=== PATIENT | male | born 1975 | race African-American/Black ===

== ENCOUNTER 2022-01-03 15:02 | Emergency (ER) | payer OTHER | END 2022-01-03 16:39 | disposition left against medical advice (07) | LOC: ER 15:02 | DX: R68.89 Other general symptoms and signs (principal); Z53.21 Procedure and treatment not carried out due to patient leaving prior to being seen by health care provider ==

== ENCOUNTER 2022-09-20 20:46 | Emergency (ER) | payer OTHER ==
[~2022-09-20] VITALS: Ht 182.9 cm; Wt 90.9 kg
[2022-09-20 20:46] VITALS: BP 150/88; PULSE 66; RESP 18; O2SAT 96
[2022-09-22] MEDS ORDERED: NORPTMEDS CO (02:06)
== END 2022-09-21 23:52 | disposition left against medical advice (07) ==
LOC: ER 20:47
DX: R29.810 Facial weakness (principal); R20.0 Anesthesia of skin; Z53.21 Procedure and treatment not carried out due to patient leaving prior to being seen by health care provider

== ENCOUNTER 2022-09-21 04:00 | Inpatient (IN) | payer OTHER ==
[~2022-09-21] VITALS: Ht 182.9 cm; Wt 93.6 kg
[2022-09-21 05:10] LABS: Basophils # (auto) 0 10 ^3/uL (0-0.2); Basophils % (auto) 0.6 % (0.0-2.0); Eosinophils # (auto) 0.3 10 ^3/uL (0-0.8); Hematocrit 42.2 % (41.0-53.0); Hemoglobin 14.6 g/dL (13.5-17.5); Lymphocytes # (auto) 1.3 10 ^3/uL (0.4-5.4); Mean Corpuscular Hgb Conc. 34.5 g/dL (32.0-36.0); Mean Corpuscular Volume 92.8 fL (80.0-100.0); Monocytes # (auto) 0.6 10 ^3/uL (0-1.3); Monocytes % (auto) 6.9 % (0.0-12.0); Neutrophils # (auto) 6.4 10 ^3/uL (1.6-8.6); Neutrophils % (auto) 74.5 % (37.0-80.0); Nucleated Red Blood Cells % 0.2 %; Red Blood Cells 4.55 10^6/uL (4.5-5.90); Red Cell Distribution Width 12.5 % (11.8-14.3); White Blood Cell 8.5 10^3/uL (4.4-10.8)
[2022-09-21 05:28] LABS: Albumin 4.1 g/dL (3.4-5.0); Anion Gap 12 (5-15); Aspartate Aminotransferase 94 U/L (15-37); BUN/Creatinine Ratio 23.4 (10.0-20.0); Blood Urea Nitrogen 26 mg/dL (7-18); Calcium 8.6 mg/dL (8.5-10.1); Carbon Dioxide 26 mmol/L (21-32); Chloride 94 mmol/L (98-107); GFR African American 91 mL/min; GFR Non-African American 75 mL/min; Glucose 117 mg/dL (74-106); Lipase 334 U/L (73-393); Sodium 132 mmol/L (136-145)
[2022-09-21 05:34] LABS: Alanine Aminotransferase 84 U/L (16-61); Alkaline Phosphatase 88 U/L (45-117); Bilirubin, Total 1.3 mg/dL (0.2-1.0)
[2022-09-21] MEDS ORDERED: PANTOPRAZOLE 40 MG/10 ML VIAL INJ IV ONE (07:00)
[2022-09-21] MEDS ORDERED: POTASSIUM CHL 20MEQ/100ML 100 ML IV ONE (07:00)
[2022-09-21] MEDS ORDERED: SODIUM CHLORIDE 0.9% 1,000 ML IVB ONE (07:00)
[2022-09-21] MEDS ORDERED: PROCHLORPERAZINE EDISYLATE 5 MG/ML 2ML VIAL IV ONE (07:45)
[2022-09-21 10:40] VITALS: PULSE 69; RESP 13; O2SAT 95
[2022-09-21] MEDS ORDERED: ONDANSETRON HCL 4 MG/2 ML VIAL IV ONE (11:45)
[2022-09-21] MEDS ORDERED: NITROGLYCERIN 0.4 MG SL TAB SL PRN (12:00)
[2022-09-21] MEDS ORDERED: MORPHINE SULFATE INJ 2 MG/ml SYRG IV PRN (12:00)
[2022-09-21 12:28] LABS: INR 1.04 (0.9-1.15); Partial Thromboplastin Time 27.1 SEC (24.5-34.5); Prothrombin Time 10.9 sec (9.3-11.8)
[2022-09-21] MEDS: FOLIC ACID 1 MG, MULTIPLE VITAMIN 10 ML, MAGNESIUM SULF SDV 50% 8 MEQ, THIAMINE INJ 100... INJ SCH ×5 (12:39)
[2022-09-21] MEDS ORDERED: LORazepam 2MG/ML-1ML VIAL IV PRN (14:15)
[2022-09-21] MEDS ORDERED: ONDANSETRON HCL 4 MG/2 ML VIAL IV PRN (14:15)
[2022-09-21 15:03] LABS: Urine Bacteria NONE SEEN /hpf (None Seen); Urine Blood Negative /uL (Negative); Urine Clarity Clear (Clear); Urine Color Colorless (Yellow); Urine Protein, UAD Negative (Negative); Urine Specific Gravity 1.011 (1.001-1.035); Urine Urobilinogen Normal (Negative); Urine WBC 1 /hpf (0 - 3)
[2022-09-21 15:09] LABS: Amphetamine Screen, Urine POSITIVE (NEGATIVE); Barbiturate Scree,Urine NEGATIVE (NEGATIVE); Benzodiazephine Screen, Urine NEGATIVE (NEGATIVE); Cannabinoid Screen, Urine POSITIVE (NEGATIVE); Cocaine Screen, Urine NEGATIVE (NEGATIVE)
[2022-09-21 15:16] LABS: Opiate Scree,Urine NEGATIVE (NEGATIVE); Phencyclidine Screen, Urine NEGATIVE (NEGATIVE)
[2022-09-21] MEDS: SODIUM CHLORIDE 0.9% 1,000 ML IV SCH (16:34)
[2022-09-21] MEDS ORDERED: hydrALAZINE HCL 20 MG/ML VL IV PRN (17:15)
[2022-09-21 20:05] VITALS: PULSE 73; RESP 16; O2SAT 96
[2022-09-22] VITALS (8 sets, daily range): BP systolic 126–151; BP diastolic 67–80; PULSE 57–73; RESP 14–18; TEMP 97.6–98.7; O2SAT 94–99
[2022-09-22] MEDS ORDERED: NORPTMEDS CO (02:06)
[2022-09-22] MEDS: SODIUM CHLORIDE 0.9% 1,000 ML IV SCH ×2 (03:35→17:33)
[2022-09-22] MEDS: SUCRALFATE 1 GM/10 ML ORAL SUSP PO SCH ×4 (06:07→21:42)
[2022-09-22 07:02] LABS: Albumin 3.1 g/dL (3.4-5.0); Bilirubin, Direct 0.2 mg/dL (0-0.2); Bilirubin, Total 0.9 mg/dL (0.2-1.0); Total Protein 6.7 g/dL (6.4-8.2)
[2022-09-22 08:17] LABS: Basophils # (auto) 0.1 10 ^3/uL (0-0.2); Eosinophils # (auto) 0.2 10 ^3/uL (0-0.8); Eosinophils % (auto) 2.8 % (0.0-7.0); Hematocrit 39.5 % (41.0-53.0); Hemoglobin 13.1 g/dL (13.5-17.5); Mean Corpuscular Hemoglobin 30.9 pg (28.0-32.0); Mean Corpuscular Hgb Conc. 33.3 g/dL (32.0-36.0); Monocytes # (auto) 0.7 10 ^3/uL (0-1.3); Monocytes % (auto) 8.8 % (0.0-12.0); Neutrophils # (auto) 5.1 10 ^3/uL (1.6-8.6); Neutrophils % (auto) 62.4 % (37.0-80.0); Nucleated Red Blood Cells % 0.1 %; Red Blood Cells 4.25 10^6/uL (4.5-5.90); White Blood Cell 8.1 10^3/uL (4.4-10.8)
[2022-09-22 08:39] LABS: Albumin 3.1 g/dL (3.4-5.0); Calcium 7.9 mg/dL (8.5-10.1); Phosphorus 1.4 mg/dL (2.5-4.90); Potassium 3.4 mmol/L (3.5-5.1)
[2022-09-22] MEDS ORDERED: POTASSIUM PHOSPHATE 26.4 MEQ in SODIUM CHL 0.9% 100 ML IV ONE (11:00)
[2022-09-22] MEDS: PANTOPRAZOLE 40 MG/10 ML VIAL INJ IV SCH (11:56)
[2022-09-22] MEDS: FOLIC ACID 1 MG, MULTIPLE VITAMIN 10 ML, MAGNESIUM SULF SDV 50% 8 MEQ, THIAMINE INJ 100... INJ SCH ×5 (12:55)
[2022-09-23] VITALS (8 sets, daily range): BP systolic 140–153; BP diastolic 76–88; PULSE 60–85; RESP 15–19; TEMP 97.9–99.3; O2SAT 94–100
[2022-09-23] MEDS: SUCRALFATE 1 GM/10 ML ORAL SUSP PO SCH ×4 (05:41→21:16)
[2022-09-23] MEDS: SODIUM CHLORIDE 0.9% 1,000 ML IV SCH ×2 (08:49→19:35)
[2022-09-23] MEDS: LACTULOSE 20Gm/30ML SOLN PO SCH (09:40)
[2022-09-23] MEDS: PANTOPRAZOLE 40 MG/10 ML VIAL INJ IV SCH (09:40)
[2022-09-23 09:41] LABS: Basophils # (auto) 0.1 10 ^3/uL (0-0.2); Eosinophils # (auto) 0.2 10 ^3/uL (0-0.8); Eosinophils % (auto) 3.1 % (0.0-7.0); Hematocrit 36.5 % (41.0-53.0); Hemoglobin 12.2 g/dL (13.5-17.5); Lymphocytes # (auto) 2.1 10 ^3/uL (0.4-5.4); Mean Corpuscular Hemoglobin 31.2 pg (28.0-32.0); Mean Corpuscular Hgb Conc. 33.4 g/dL (32.0-36.0); Mean Corpuscular Volume 93.4 fL (80.0-100.0); Monocytes # (auto) 0.5 10 ^3/uL (0-1.3); Monocytes % (auto) 7.7 % (0.0-12.0); Neutrophils # (auto) 3.9 10 ^3/uL (1.6-8.6); Neutrophils % (auto) 57.2 % (37.0-80.0); Nucleated Red Blood Cells % 0.2 %; Red Blood Cells 3.91 10^6/uL (4.5-5.90); Red Cell Distribution Width 12.6 % (11.8-14.3); White Blood Cell 6.9 10^3/uL (4.4-10.8)
[2022-09-23 09:49] LABS: Hepatitis A Total Antibody Negative (Negative)
[2022-09-23 10:10] LABS: BUN/Creatinine Ratio 9.9 (10.0-20.0); Potassium 3.6 mmol/L (3.5-5.1)
[2022-09-23] MEDS ORDERED: SUCR1SUS26 PO (10:38)
[2022-09-23] MEDS ORDERED: MULT-351 PO (10:38)
[2022-09-23] MEDS ORDERED: PANT40TA2 PO (10:38)
[2022-09-23 11:24] LABS: Hepatitis B Surface Antibody Negative (Negative)
[2022-09-23 12:46] LABS: Hepatitis B Surface Antigen Negative (Negative)
[2022-09-23 12:47] LABS: Hepatitis B Core Total AB Negative (Negative); Hepatitis C Antibody Negative (Negative)
[2022-09-23] MEDS ORDERED: NEUTRA-PHOS TABLET PO ONE (18:45)
[2022-09-23] MEDS ORDERED: LORazepam 2MG/ML-1ML VIAL IV PRN (21:45)
[2022-09-24 05:00] VITALS: BP 139/80; PULSE 56; RESP 18; TEMP 98.3; O2SAT 97
[2022-09-24 05:59] LABS: Basophils # (auto) 0.1 10 ^3/uL (0-0.2); Basophils % (auto) 1.2 % (0.0-2.0); Eosinophils # (auto) 0.3 10 ^3/uL (0-0.8); Eosinophils % (auto) 3.9 % (0.0-7.0); Hematocrit 34.5 % (41.0-53.0); Hemoglobin 11.7 g/dL (13.5-17.5); Lymphocytes # (auto) 2.3 10 ^3/uL (0.4-5.4); Lymphocytes % (auto) 33.5 % (10.0-50.0); Mean Corpuscular Hemoglobin 31.7 pg (28.0-32.0); Mean Corpuscular Hgb Conc. 33.9 g/dL (32.0-36.0); Mean Corpuscular Volume 93.4 fL (80.0-100.0); Monocytes # (auto) 0.6 10 ^3/uL (0-1.3); Monocytes % (auto) 9.1 % (0.0-12.0); Neutrophils # (auto) 3.6 10 ^3/uL (1.6-8.6); Neutrophils % (auto) 52.3 % (37.0-80.0); Nucleated Red Blood Cells % 0.1 %; Red Blood Cells 3.69 10^6/uL (4.5-5.90); Red Cell Distribution Width 12.6 % (11.8-14.3)
[2022-09-24 06:14] LABS: BUN/Creatinine Ratio 14.6 (10.0-20.0); Calcium 7.9 mg/dL (8.5-10.1); Potassium 3.1 mmol/L (3.5-5.1)
[2022-09-24] MEDS: SUCRALFATE 1 GM/10 ML ORAL SUSP PO SCH ×2 (06:55→09:20)
[2022-09-24] MEDS ORDERED: POTASSIUM PHOSPHATE 26.4 MEQ in SODIUM CHL 0.9% 100 ML IV ONE (07:30)
[2022-09-24 08:00] VITALS: PULSE 80; RESP 19; O2SAT 99
[2022-09-24] MEDS: SODIUM CHLORIDE 0.9% 1,000 ML IV SCH (08:55)
[2022-09-24] MEDS: PANTOPRAZOLE 40 MG/10 ML VIAL INJ IV SCH (09:18)
[2022-09-24] MEDS: LACTULOSE 20Gm/30ML SOLN PO SCH (09:19)
== END 2022-09-24 09:20 | disposition home or self-care (01) | DRG 241 ==
LOC: ER 04:00 → TELE 11:52 → TELE-EAST 23:54 → EAST 09-23 15:25
PROVIDERS: ADMIT Internal Medicine; ATTEND Student in an Organized Health Care Education/Training Program
DX: K29.80 Duodenitis without bleeding (principal); G92.8 Other toxic encephalopathy; I21.A1 Myocardial infarction type 2; E83.39 Other disorders of phosphorus metabolism; E87.8 Other disorders of electrolyte and fluid balance, not elsewhere classified; F19.10 Other psychoactive substance abuse, uncomplicated; K76.9 Liver disease, unspecified; E87.6 Hypokalemia; K52.9 Noninfective gastroenteritis and colitis, unspecified; K29.00 Acute gastritis without bleeding; F17.210 Nicotine dependence, cigarettes, uncomplicated; F20.9 Schizophrenia, unspecified; F31.9 Bipolar disorder, unspecified; Z59.00 Homelessness unspecified; Z82.0 Family history of epilepsy and other diseases of the nervous system
CPT/HCPCS: 36415; 72100; 74176; 76705; 80048; 80053; 80069; 80076; 80307; 81001; 82010; 82140; 82728; 83690; 84100; 84484; 85025; 85610; 85730; 86677; 86704; 86706; 86708; 86803; 87340; 93005; 96361; 96365; 96366; 96375; 97163; C9113; G0378; J2405; J3480

== ENCOUNTER 2023-04-10 03:04 | Inpatient (IN) | payer MEDICAID, OTHER ==
[~2023-04-10] VITALS: Ht 182.9 cm; Wt 82.9 kg
[~2023-04-10 03:04] MED LIST: MULT-351 PO; NORPTMEDS CO; PANT40TA2 PO; SUCR1SUS26 PO
[2023-04-10 03:25] VITALS: BP 164/94; RESP 16; O2SAT 98
[2023-04-10 06:54] LABS: Basophils # (auto) 0.1 10 ^3/uL (0-0.2); Basophils % (auto) 1.3 % (0.0-2.0); Eosinophils # (auto) 0.3 10 ^3/uL (0-0.8); Hematocrit 43.4 % (41.0-53.0); Hemoglobin 14.8 g/dL (13.5-17.5); Lymphocytes # (auto) 2.4 10 ^3/uL (0.4-5.4); Lymphocytes % (auto) 36.1 % (10.0-50.0); Mean Corpuscular Hgb Conc. 34.2 g/dL (32.0-36.0); Mean Corpuscular Volume 93.8 fL (80.0-100.0); Monocytes # (auto) 0.5 10 ^3/uL (0-1.3); Monocytes % (auto) 8.1 % (0.0-12.0); Neutrophils # (auto) 3.4 10 ^3/uL (1.6-8.6); Neutrophils % (auto) 50.5 % (37.0-80.0); Nucleated Red Blood Cells % 0.1 %; Red Blood Cells 4.62 10^6/uL (4.5-5.90); Red Cell Distribution Width 13.2 % (11.8-14.3); White Blood Cell 6.7 10^3/uL (4.4-10.8)
[2023-04-10 07:08] LABS: Chloride 103 mmol/L (98-107); Potassium 4.5 mmol/L (3.5-5.1); Sodium 138 mmol/L (136-145)
[2023-04-10 07:09] LABS: Anion Gap 7 (5-15); Calcium 9.8 mg/dL (8.5-10.1); Carbon Dioxide 28 mmol/L (20-30)
[2023-04-10 07:14] LABS: BUN/Creatinine Ratio 16.3 (10.0-20.0); Blood Urea Nitrogen 15 mg/dL (9-23); Glucose 101 mg/dL (74-106)
[2023-04-10 07:15] LABS: Blood Alcohol < 3.0 mg/dL (<10)
[2023-04-10 09:05] VITALS: PULSE 65
[2023-04-10 09:17] LABS: INR 0.98 (0.9-1.15); Prothrombin Time 10.3 sec (9.3-11.8)
[2023-04-10 09:30] LABS: Albumin 4.5 g/dL (3.2-4.8); Bilirubin, Direct 0.3 mg/dL (<0.3); Total Protein 7.7 g/dL (5.7-8.2)
[2023-04-10 09:53] LABS: Amphetamine Screen, Urine Pos (NEGATIVE); Barbiturate Scree,Urine Neg (NEGATIVE); Benzodiazephine Screen, Urine Neg (NEGATIVE); Cocaine Screen, Urine Neg (NEGATIVE)
[2023-04-10 09:54] LABS: Cannabinoid Screen, Urine Pos (NEGATIVE); Opiate Scree,Urine Neg (NEGATIVE); Phencyclidine Screen, Urine Neg (NEGATIVE)
[2023-04-10 09:57] LABS: Urine Bacteria NONE SEEN /hpf (None Seen); Urine Blood Negative /uL (Negative); Urine Clarity Clear (Clear); Urine Color Yellow (Yellow); Urine Protein, UAD Negative (Negative); Urine Specific Gravity 1.026 (1.001-1.035); Urine Urobilinogen Normal (Negative); Urine WBC 1 /hpf (0 - 3); Urine pH 5.5 (5.0-8.0)
[2023-04-10] MEDS ORDERED: ACETAMINOPHEN 325 MG TAB PO PRN (10:15)
[2023-04-10] MEDS ORDERED: NITROGLYCERIN 0.4 MG SL TAB SL PRN (10:15)
[2023-04-10] MEDS ORDERED: ONDANSETRON HCL 4 MG/2 ML VIAL IV PRN (10:15)
[2023-04-10] MEDS ORDERED: HYDROmorphone HCL 2 MG/ML VL/or syr IV PRN (10:15)
[2023-04-10] MEDS ORDERED: MORPHINE SULFATE INJ 2 MG/ml SYRG IV PRN (10:15)
[2023-04-10] MEDS ORDERED: ENOXAPARIN SOD 40 MG/0.4 ML SYRINGE SC SCH (10:15)
[2023-04-10] MEDS ORDERED: DOCUSATE SOD 100 MG CAP PO PRN (10:15)
[2023-04-10] MEDS ORDERED: HYDROcodone-ACET 5/325MG TAB PO PRN (10:15)
[2023-04-10] MEDS ORDERED: LACTATED RINGER'S 1,000 ML IV SCH (11:30)
[2023-04-10] MEDS ORDERED: SODIUM CHLOR 0.9% PF (SALINE LOCK) 10ML VIAL/SYR IV SCH (14:00)
== END 2023-04-10 13:24 | disposition left against medical advice (07) | DRG 198 ==
LOC: ER 03:04 → TELE 10:09
PROVIDERS: ADMIT Internal Medicine; ATTEND Internal Medicine Geriatric Medicine
DX: I24.9 Acute ischemic heart disease, unspecified (principal); F17.210 Nicotine dependence, cigarettes, uncomplicated; I10 Essential (primary) hypertension; K21.9 Gastro-esophageal reflux disease without esophagitis; R79.89 Other specified abnormal findings of blood chemistry; F19.10 Other psychoactive substance abuse, uncomplicated; Z59.00 Homelessness unspecified; Z82.0 Family history of epilepsy and other diseases of the nervous system
CPT/HCPCS: 36415; 71045; 80048; 80076; 80307; 80320; 81001; 83690; 83735; 84484; 85025; 85610; 93005; G0378

== ENCOUNTER 2023-06-08 05:57 | Emergency (ER) | payer OTHER ==
[~2023-06-08] VITALS: Ht 180.3 cm; Wt 86.4 kg
[2023-06-08 07:46] VITALS: BP 158/102; PULSE 75; RESP 19; TEMP 98.2; O2SAT 98
[2023-06-08] MEDS ORDERED: ACET-1881 PO (08:16)
[2023-06-08] MEDS ORDERED: DICL1GEL59 EX (08:16)
[2023-06-08] MEDS ORDERED: MELO7.5T7 PO (08:16)
== END 2023-06-08 08:32 | disposition home or self-care (01) ==
LOC: ER 05:57
DX: R51.9 Headache, unspecified (principal); M79.672 Pain in left foot; M79.671 Pain in right foot; F17.210 Nicotine dependence, cigarettes, uncomplicated; F12.10 Cannabis abuse, uncomplicated; F15.10 Other stimulant abuse, uncomplicated; Z59.00 Homelessness unspecified

== ENCOUNTER 2023-08-24 13:34 | Emergency (ER) | payer OTHER ==
[~2023-08-24] VITALS: Ht 170.2 cm; Wt 77.0 kg
[~2023-08-24 13:34] MED LIST changes: +ACET-1881 PO; +DICL1GEL59 EX; +MELO7.5T7 PO
[2023-08-24 13:45] VITALS: BP 143/82; PULSE 83; RESP 18; O2SAT 99
== END 2023-08-24 15:54 | disposition left against medical advice (07) ==
LOC: ER 13:34
DX: F41.9 Anxiety disorder, unspecified (principal); R51.9 Headache, unspecified; Z53.21 Procedure and treatment not carried out due to patient leaving prior to being seen by health care provider

== ENCOUNTER 2023-09-13 00:57 | Emergency (ER) | payer OTHER ==
[~2023-09-13] VITALS: Ht 180.3 cm; Wt 76.1 kg
[2023-09-13 04:01] VITALS: BP 155/95; PULSE 68; RESP 16; TEMP 97.5; O2SAT 98
[2023-09-13] MEDS: LORazepam 0.5 MG TAB PO ONE (05:16)
[2023-09-13] MEDS: IBUPROFEN 600 MG TAB PO ONE (05:16)
== END 2023-09-13 05:24 | disposition home or self-care (01) ==
LOC: ER 00:57
DX: F41.9 Anxiety disorder, unspecified (principal); F17.210 Nicotine dependence, cigarettes, uncomplicated; F12.90 Cannabis use, unspecified, uncomplicated; F15.90 Other stimulant use, unspecified, uncomplicated; Z79.899 Other long term (current) drug therapy; Z79.1 Long term (current) use of non-steroidal anti-inflammatories (NSAID); Z59.00 Homelessness unspecified

== ENCOUNTER 2023-12-22 21:39 | Emergency (ER) | payer OTHER ==
[~2023-12-22] VITALS: Ht 182.9 cm; Wt 77.3 kg
[2023-12-22 22:20] VITALS: BP 163/97; PULSE 94; RESP 20; TEMP 98.5; O2SAT 98
[2023-12-23] MEDS: ACETAMINOPHEN 500 MG TAB PO ONE (00:57)
[2023-12-23] MEDS: LORazepam 0.5 MG TAB PO ONE (00:58)
[2023-12-23] MEDS ORDERED: PROP1TAB51 PO (01:25)
--- NOTE | 2023-12-23 01:27 | ED.PDOC ---
Psychiatric HPI Comments This is a 48 year old homeless male presents to the ED chief complaint of anxiety. Patient reports currently controlled with Xanax has been out of his medications for several days. Patient is requesting refill. He denies HI SI LESLIE SA or panic attacks at this time also denies any withdrawal symptoms. Chief Complaint: Anxiety Time Seen by MD: 22:04 Primary Care Provider: unknown Reviewed Notes: Nurses Notes, Medications, Allergies Information Source: Patient Mode of Arrival: Ambulatory Past Medical History PAST MEDICAL HISTORY: Denies Surgical History: Denies all surgeries Family History Family History: Unknown Social History Smoker: Cigarettes Alcohol: Occasionally Drugs: Marijuana, Methamphetamine Lives In: Homeless Constitutional: denies: chills, diaphoresis, fatigue, fever, malaise, sweats, weakness, others EENTM: denies: blurred vision, double vision, ear bleeding, ear discharge, ear drainage, ear pain, ear ringing, eye pain, eye redness, hearing loss, mouth pain, mouth swelling, nasal discharge, nose bleeding, nose congestion, nose pain, photophobia, tearing, throat pain, throat swelling, voice changes, others Respiratory: denies: cough, hemoptysis, orthopnea, SOB at rest, shortness of breath, SOB with excertion, stridor, wheezing, others Cardiovascular: denies: chest pain, dizzy spells, diaphoresis, Dyspnea on exertion, edema, irregular heart beat, left arm pain, lightheadedness, palpitations, PND, syncope, others Gastrointestinal: denies: abdomen distended, abdominal pain, blood streaked bowels, constipated, diarrhea, dysphagia, difficulty swallowing, hematemesis, melena, nausea, poor appetite, poor fluid intake, rectal bleeding, rectal pain, vomiting, others Genitourinary: denies: burning, dysuria, flank pain, frequency, hematuria, incontinence, penile discharge, penile sore, pain, testicle pain, testicle swelling, urgency, others Neurological: denies: dizziness, fainting, headache, left sided numbness, left sided weakness, numbness, paresthesia, pre-existing deficit, right sided n umbness, right sided weakness, seizure, speech problems, tingling, tremors, weakness, others Musculoskeletal: denies: back pain, gout, joint pain, joint swelling, muscle pain, muscle stiffness, neck pain, others Integumetry: denies: bruises, change in color, change in hair/nails, dryness, laceration, lesions, lumps, rash, wounds, others Allergic/Immunocompromised: denies: Difficulty Healing, Frequent Infections, Hives, Itching, others Hematologic/Lymphatic: denies: anemia, blood clots, easy bleeding, easy bruising, swollen glands, others Endocrine: denies: excessive hunger, excessive sweating, excessive thirst, excessive urination, flushing, intolerance to cold, intolerance to heat, unexplained weight gain, unexplained weight loss, others Psychiatric: reports: anxiety; denies: bipolar disorder, depression, hopeless, panic disorder, schizophrenia, sleepless, suicidal, others Physical Exam General Appearance: No Apparent Distress, Normal HEENT: Normal ENT Inspection, Pharynx Normal, TMs Normal Neck: Full Range of Motion, Non-Tender, Normal, Normal Inspection Respiratory: Chest Non-Tender, Lungs Clear, No Accessory Muscle Use, No Respiratory Distress, Normal Breath Sounds Cardiovascular: No Edema, No JVD, No Murmur, No Gallop, Normal Peripheral Pulses, Regular Rate/Rhythm Breast Exam: Deferred Gastrointestinal: No Organomegaly, Non Tender, No Pulsatile Mass, Normal Bowel Sounds, Soft Genitalia: Deferred Pelvic: Deferred Rectal: Deferred Extremities: No calf tenderness, Normal capillary refill, Normal inspection, Normal range of motion, Non-tender, No pedal edema Musculoskeletal : Apperance: Normal Neurologic: 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 Was a procedure done?: No Psych Differential Dx Psych. Differential Dx: Anxiety X-Ray, Labs, Meds, VS Vital Signs Date Time Temp Pulse Resp B/P (MAP) Pulse Ox O2 Delivery O2 Flow Rate FiO2 12/23/23 01:43 Room Air 12/22/23 22:20 98.5 94 20 163/97 (119) 98 12/22/23 22:20 98.5 94 20 163/97 (119) 98 98.5 Current Medications Medications (Trade) Dose Ordered Sig/Edwardo Route Start Time Stop Time Status Last Admin Lorazepam (Ativan Tablet) 0.5 mg ONCE ONCE PO 12/23/23 00:30 12/23/23 00:31 DC 12/23/23 00:58 Acetaminophen (Tylenol Tablet) 1,000 mg ONCE ONCE PO 12/23/23 00:30 12/23/23 00:31 DC 12/23/23 00:57 X-Ray, Labs, Meds, VS Comment Patient given Ativan 0.5 mg. Patient given food and fluids. Patient states he is feeling better requesting discharge at this time. We will trial of propranolol 10 mg twice daily as needed for anxiety and panic attacks. Advised him to follow up with his PCP for continued prescriptions of his Xanax. Advised to return to the ER for increasing symptoms of anxiety or any concerning symptoms. Patient agrees with discharge plan of care. Time of 1ST Reevaluation: :25 Reevaluation 1ST: Improved Patient Education/Counseling: Diagnosis, Treatment, Prognosis, Need For Follow Up Family Education/Counseling: No Family Present Departure 1 Departure Time of Disposition: 01:25 Impression: Primary Impression: Anxiety Disposition: HOME / SELF CARE / HOMELESS Condition: Stable e-Prescriptions Propranolol HCl (Propranolol Hydrochloride) 10 Mg Tab 1 TAB PO BID PRN for 5 Days, #10 TAB Take 1 tablet by mouth twice daily as needed for anxiety or panic attacks Prov: CAROLINA NAVA 12/23/23 Discharged With: Self Critical Care Note Critical Care Time?: No Stability Stability form required: CAROLINA Dinh Dec 23, 2023 01:27
== END 2023-12-23 01:41 | disposition home or self-care (01) ==
LOC: ER 21:39
DX: F41.9 Anxiety disorder, unspecified (principal); F17.210 Nicotine dependence, cigarettes, uncomplicated; F15.90 Other stimulant use, unspecified, uncomplicated; Z76.0 Encounter for issue of repeat prescription; Z59.00 Homelessness unspecified

== ENCOUNTER 2023-12-26 16:42 | Emergency (ER) | payer OTHER ==
[~2023-12-26] VITALS: Ht 182.9 cm; Wt 77.6 kg
[~2023-12-26 16:42] MED LIST changes: +PROP1TAB51 PO
[2023-12-26] MEDS: LORazepam 0.5 MG TAB PO ONE (18:23)
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
[2023-12-26] MEDS: ACETAMINOPHEN 325 MG TAB PO ONE (18:24)
[2023-12-26 18:25] VITALS: BP 160/100; PULSE 81; RESP 16; TEMP 98.4; O2SAT 100
--- NOTE | 2023-12-26 18:30 | DVH ---
EXAM: XY CHEST TWO VIEWS ROUTINE CLINICAL HISTORY: cough TECHNIQUE: Frontal and lateral views of the chest WID: COMPARISON: Chest radiograph from 04/10/2023 FINDINGS: Lines and tubes: None Chest: The heart size and pulmonary vasculature is within normal limits. No pleural effusion, pneumothorax, or consolidation. The osseous structures are grossly intact. IMPRESSION: No acute cardiopulmonary abnormality.
[2023-12-26] MEDS ORDERED: LORA-1121 PO (18:55)
== END 2023-12-26 21:01 | disposition home or self-care (01) ==
LOC: ER 16:42
DX: F41.9 Anxiety disorder, unspecified (principal); I10 Essential (primary) hypertension; F17.210 Nicotine dependence, cigarettes, uncomplicated; F15.90 Other stimulant use, unspecified, uncomplicated; Z98.890 Other specified postprocedural states; Z59.00 Homelessness unspecified; Z79.1 Long term (current) use of non-steroidal anti-inflammatories (NSAID); Z79.899 Other long term (current) drug therapy
CPT/HCPCS: 71046

== ENCOUNTER 2024-02-03 15:33 | Emergency (ER) | payer OTHER ==
[~2024-02-03 15:33] MED LIST changes: +LORA-1121 PO
[2024-02-03 16:26] VITALS: BP 159/94; PULSE 100; RESP 22; TEMP 97.3; O2SAT 98
--- NOTE | 2024-02-03 16:34 | ED.PDOC ---
SOB-HPI HPI Comments A 48 YEAR OLD MALE PRESENTS TO THE ED WITH COMPLAINT OF COUGH. PATIENT STATES HE HAS BEEN EXPERIENCING A COUGH, CONGESTION, AND BODY ACHES FOR THE PAST 2 DAYS. PATIENT ALSO NOTE HE HAS A HISTORY OF ANXIETY AND STATES IT HAS BEEN WORSE OVER THE LAST FEW DAYS. PT REQUESTS ANXIETY MEDICATION AT THIS TIME. PATIENT DENIES FEVER, SHORTNESS OF BREATH, CHEST PAIN, ABDOMINAL PAIN, NAUSEA, VOMITING, HEADACHE, OR OTHER COMPLAINTS. NO OTHER SYMPTOMS OR MODIFYING FACTORS AT THIS TIME. PATIENT IS ALERT, ORIENTED X 4, AND HAS STEADY GAIT. Chief Complaint: Flu like Time Seen by MD: 16:00 Primary Care Provider: unknown Reviewed notes: Nurses Notes, Medications, Allergies Information Source: Patient Mode of Arrival: Ambulatory Severity: Mild, Moderate Timing: Days Duration: Since onset, Days Context: Spontaneous Onset PE Risk Factors: None History of: Anxiety Prehospital treatment: None Modifying Factors: Nothing Associated Signs and Symptoms: Cough, Nasal Congestion, Sore Throat If cough with SOB: Non-Productive Past Medical History PAST MEDICAL HISTORY: Anxiety, HTN Surgical History: Denies all surgeries Family History Family History: Reviewed,noncontributory to illness Social History Smoker: Cigarettes Alcohol: Occasionally Drugs: Marijuana, Methamphetamine Lives In: Homeless Constitutional: denies: chills, diaphoresis, fatigue, fever, malaise, sweats, weakness, others EENTM: reports: nose congestion, throat pain; denies: blurred vision, double vision, ear bleeding, ear discharge, ear drainage, ear pain, ear ringing, eye pain, eye redness, hearing loss, mouth pain, mouth swelling, nasal discharge, nose bleeding, nose pain, photophobia, tearing, throat swelling, voice changes, others Respiratory: reports: cough; denies: hemoptysis, orthopnea, SOB at rest, shortness of breath, SOB with excertion, stridor, wheezing, others Cardiovascular: denies: chest pain, dizzy spells, diaphoresis, Dyspnea on exertion, edema, irregular heart beat, left arm pain, lightheadedness, palpitations, PND, syncope, others Gastrointestinal: denies: abdomen distended, abdominal pain, blood streaked bowels, constipated, diarrhea, dysphagia, difficulty swallowing, hematemesis, melena, nausea, poor appetite, poor fluid intake, rectal bleeding, rectal pain, vomiting, others Genitourinary: denies: burning, dysuria, flank pain, frequency, hematuria, incontinence, penile discharge, penile sore, pain, testicle pain, testicle swelling, urgency, others Neurological: denies: dizziness, fainting, headache, left sided numbness, left sided weakness, numbness, paresthesia, pre-existing deficit, right sided numbness, right sided weakness, seizure, speech problems, tingling, tremors, weakness, others Musculoskeletal: denies: back pain, gout, joint pain, joint swelling, muscle pa in, muscle stiffness, neck pain, others Integumetry: denies: bruises, change in color, change in hair/nails, dryness, laceration, lesions, lumps, rash, wounds, others Allergic/Immunocompromised: denies: Difficulty Healing, Frequent Infections, Hives, Itching, others Hematologic/Lymphatic: denies: anemia, blood clots, easy bleeding, easy bruising, swollen glands, others Endocrine: denies: excessive hunger, excessive sweating, excessive thirst, excessive urination, flushing, intolerance to cold, intolerance to heat, unexplained weight gain, unexplained weight loss, others Psychiatric: reports: anxiety; denies: bipolar disorder, depression, hopeless, panic disorder, schizophrenia, sleepless, suicidal, others All Other Systems: Reviewed and Negative Physical Exam General Appearance: No Apparent Distress, Normal, Other (ANXIOUS ) HEENT: Normal ENT Inspection, PERRL/EOMI, Pharynx Normal, TMs Normal Neck: Full Range of Motion, Non-Tender, Normal, Normal Inspection Respiratory: Chest Non-Tender, Expiration, No Accessory Muscle Use, No Respiratory Distress, Rhonchi Cardiovascular: No Edema, No JVD, No Murmur, No Gallop, Normal Peripheral Pulses, Regular Rate/Rhythm Breast Exam: Deferred Gastrointestinal: No Organomegaly, Non Tender, No Pulsatile Mass, Normal Bowel Sounds, Soft Genitalia: Deferred Pelvic: Deferred Rectal: Deferred Extremities: No calf tenderness, Normal capillary refill, Normal inspection, Normal range of motion, Non-tender, No pedal edema Musculoskeletal : Apperance: Normal Neurologic: Alert, digestion 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 Was a procedure done?: No Differential Dx Differential Diagnosis: Bronchitis, Pneumonia, Sinusitis, Allergic Rhinitis, Otitis Media, Pharyngitis, URI X-Ray, Labs, Meds, VS Vital Signs Date Time Temp Pulse Resp B/P (MAP) Pulse Ox O2 Delivery O2 Flow Rate FiO2 02/03/24 16:26 97.3 100 22 159/94 (115) 98 97.3 02/03/24 16:26 100 22 98 Room Air Current Medications Medications (Trade) Dose Ordered Sig/Edwardo Route Start Time Stop Time Status Last Admin Acetaminophen (Tylenol Tablet Or Capsule) 1,000 mg ONCE ONCE PO 02/03/24 17:15 02/03/24 17:16 02/03/24 17:09 Lorazepam (Ativan Tablet) 1 mg ONCE ONCE PO 02/03/24 17:15 02/03/24 17:16 02/03/24 17:08 CHEST RADIOGRAPH Indication: COUGH Technique: Single frontal view of the chest was obtained Comparison: XY CHEST XRAY 1 VIEW on DOS: 04/10/23 FINDINGS: Lines and Tubes: None Lungs: Bilateral perihilar peribronchial thickening. Findings may represent bronchitis.. Pleura: No effusion. No pneumothorax. Cardiomediastinal contours: Unremarkable Bones: No acute osseous abnormality. IMPRESSION: 1. Radiographic findings suggest possibility of bronchitis. ATED BY: AMY AUGUSTE Jr., DO DICTATED DATE/TIME: 02/03/241650 SIGNED BY: AMY AUGUSTE Jr., SIGNED DATE/TIME: 02/03/241650 CC: X-Ray, Labs, Meds, VS Comment EXTERNAL MEDICAL RECORDS REVIEWED: [NONE] INDEPENDENT HISTORIANS: [NONE] SOCIAL DETERMINANTS OF HEALTH: [NONE] LABS ORDERED: NONE REVIEWED AND INTERPRETED RESULTS: NONE IMAGING ORDERED: XR CHEST TREATMENTS ORDERED: ATIVAN 1MG PO, TYLENOL 1G PO PROCEDURES PERFORMED: NONE CRITICAL CARE TIME: NONE I HAVE DISCUSSED THE PATIENT WITH THE ATTENDING PHYSICIAN DR. THAKUR AND HE AG SHARI WITH THE PATIENT'S PLAN OF CARE AND DISPOSITION. BASED ON HISTORY OF PRESENT ILLNESS, AND PHYSICAL EXAM, PATIENT WILL BE D ISCHARGED HOME. DISCUSSED PLAN FOR DISCHARGE HOME WITH RX [PHENERGAN DM, TYLENOL, AND KEFLEX]. MEDICATION WARNINGS GIVEN. SHARED DECISION MAKING: PATIENT INSTRUCTED TO FOLLOW UP WITH PRIMARY CARE PROVIDER IN 1-2 DAYS FOR RE-EVALUATION OF SYMPTOMS. PATIENT VERBALIZES UNDERSTANDING TO RETURN TO ED FOR NEW OR WORSENING SYMPTOMS OR IF FOLLOW UP WITH PCP CANNOT BE OBTAINED. PATIENT FEELS COMFORTABLE GOING HOME AT THIS TIME. ALL QUESTIONS ADDRESSED AT TIME OF DISCHARGE. Images Reviewed?: Images reviewed and evaluated by me Time of 1ST Reevaluation: 17:40 Reevaluation 1ST: Improved Patient Education/Counseling: Diagnosis, Treatment, Need For Follow Up Family Education/Counseling: Diagnosis, Treatment, Need For Follow Up Medical Screening: No EMC Exist At This Time Departure 1 Departure Time of Disposition: 17:40 Impression: Primary Impression: Acute bronchitis Qualified Codes: J20.9 - Acute bronchitis, unspecified Additional Impression: Anxiety reaction Disposition: HOME / SELF CARE / HOMELESS Condition: Stable Additional Instructions: FOLLOW-UP WITH PCP IN 1 TO 2 DAYS. TAKE MEDICATIONS PRESCRIBED. RETURN TO ED FOR ANY NEW OR WORSENING SYMPTOMS. e-Prescriptions Acetaminophen (Tylenol Extra Strength Fo) 500 Mg Tab 1000 MG PO BID, #30 TAB Prov: MARY MONTES 02/03/24 Promethazine-Dm (Promethazine Dm 6.25-15 mg/5Ml) 1 Delmy Delmy 5 ML PO TID, #150 ML Prov: MARY MONTES 02/03/24 Cephalexin Monohydrate (Cephalexin) 500 Mg Cap 1 CAP PO QID, #28 CAP Prov: MARY MONTES 02/03/24 Discharged With: Self, Relative Critical Care Note Critical Care Time?: No Stability Stability form required: No Heart Score Heart Score: Heart Score Response (Comments) Value History N/A 0 EKG N/A 0 Age N/A 0 Risk Factors N/A 0 Troponin N/A 0 Total 0 I personally scribed for MARY MONTES ([email or web address]) on 02/03/24 at 16:34. Electronically submitted by Phillip Branham ([email or web address]). I personally scribed for MARY MONTES ([email or web address]) on 02/03/24 at 16:45. Electronically submitted by Phillip Branham ([email or web address]). I personally scribed for MARY MONTES ([email or web address]) on 02/03/24 at 16:58. Electronically submitted by Phillip Branham ([email or web address]). I personally scribed for MARY MONTES ([email or web address]) on 02/03/24 at 17:04. Electronically submitted by Phillip Branham ([email or web address]). MARY MONTES Feb 03, 2024 16:34
--- NOTE | 2024-02-03 16:53 | DVH ---
CHEST RADIOGRAPH Indication: COUGH Technique: Single frontal view of the chest was obtained Comparison: XY CHEST XRAY 1 VIEW on DOS: 04/10/23 FINDINGS: Lines and Tubes: None Lungs: Bilateral perihilar peribronchial thickening. Findings may represent bronchitis.. Pleura: No effusion. No pneumothorax. Cardiomediastinal contours: Unremarkable Bones: No acute osseous abnormality. IMPRESSION: 1. Radiographic findings suggest possibility of bronchitis.
[2024-02-03] MEDS ORDERED: PROM1SOL4 PO (17:07)
[2024-02-03] MEDS ORDERED: CEPH500C PO (17:07)
[2024-02-03] MEDS ORDERED: ACET-1304 PO (17:07)
[2024-02-03] MEDS: LORazepam 0.5 MG TAB PO ONE (17:08)
[2024-02-03] MEDS: ACETAMINOPHEN 500 MG TAB or CAP PO ONE (17:09)
== END 2024-02-03 17:27 | disposition home or self-care (01) ==
LOC: ER 15:33
DX: J20.9 Acute bronchitis, unspecified (principal); F41.1 Generalized anxiety disorder; F17.210 Nicotine dependence, cigarettes, uncomplicated; I10 Essential (primary) hypertension; F12.10 Cannabis abuse, uncomplicated; F15.10 Other stimulant abuse, uncomplicated; Z59.00 Homelessness unspecified
CPT/HCPCS: 71045

== ENCOUNTER 2024-02-19 17:43 | Emergency (ER) | payer OTHER ==
[~2024-02-19] VITALS: Ht 182.9 cm; Wt 82.6 kg
[~2024-02-19 17:43] MED LIST changes: +ACET-1304 PO; +CEPH500C PO; +PROM1SOL4 PO
[2024-02-19 18:10] VITALS: BP 127/85; PULSE 98; RESP 16; O2SAT 97
[2024-02-19] MEDS ORDERED: HYDR-3682 PO (18:39)
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
== END 2024-02-19 20:02 | disposition home or self-care (01) ==
LOC: ER 17:43
DX: F41.9 Anxiety disorder, unspecified (principal); F17.210 Nicotine dependence, cigarettes, uncomplicated; I10 Essential (primary) hypertension; Z59.00 Homelessness unspecified; Z79.1 Long term (current) use of non-steroidal anti-inflammatories (NSAID); Z79.899 Other long term (current) drug therapy

== ENCOUNTER 2024-02-21 00:40 | Emergency (ER) | payer OTHER ==
[~2024-02-21] VITALS: Ht 182.9 cm; Wt 81.8 kg
[~2024-02-21 00:40] MED LIST changes: +HYDR-3682 PO
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
[2024-02-21 04:20] VITALS: BP 145/95; PULSE 83; RESP 16; TEMP 97.5; O2SAT 99
[2024-02-21] MEDS: hydrOXYzine 25 MG TAB or CAP PO ONE (05:13)
== END 2024-02-21 05:14 | disposition home or self-care (01) ==
LOC: ER 00:40
DX: F41.9 Anxiety disorder, unspecified (principal); R51.9 Headache, unspecified; I10 Essential (primary) hypertension; F17.210 Nicotine dependence, cigarettes, uncomplicated; Z59.00 Homelessness unspecified

== ENCOUNTER 2024-04-18 17:44 | Emergency (ER) | payer OTHER ==
[~2024-04-18] VITALS: Ht 182.9 cm; Wt 78.0 kg
[2024-04-18 19:07] VITALS: BP 162/95; PULSE 63; RESP 20; TEMP 98; O2SAT 100
[2024-04-18] MEDS ORDERED: HYDR50CA2 PO (19:27)
--- NOTE | 2024-04-18 19:27 | ED.PDOC ---
Psychiatric HPI Comments 48-year-old male presents to ER with complaints of anxiety x1 day. Patient with past medical history significant for anxiety reports that he has been feeling anxious with difficulty sleeping x1 day. Denies use of medications for current symptoms. Denies any pain. Patient presents to ER ambulatory on arrival, alert oriented x4, with steady gait, in no distress. Denies shortness of breath, chest pain, nausea/vomiting, headache, SI/HI, hallucinations or any further symptoms/complaints Chief Complaint: Anxiety Time Seen by MD: 18:19 Primary Care Provider: ANTONIA Reviewed Notes: Nurses Notes, Medications, Allergies Information Source: Patient Mode of Arrival: Ambulatory Past Medical History PAST MEDICAL HISTORY: Anxiety, HTN Surgical History: Denies all surgeries Family History Family History: Unknown Social History Smoker: Cigarettes, Less Than 1 Pack/Day Alcohol: Occasionally Drugs: Marijuana, Methamphetamine Lives In: Homeless Constitutional: denies: chills, diaphoresis, fatigue, fever, malaise, sweats, weakness, others EENTM: denies: blurred vision, double vision, ear bleeding, ear discharge, ear drainage, ear pain, ear ringing, eye pain, eye redness, hearing loss, mouth pain, mouth swelling, nasal discharge, nose bleeding, nose congestion, nose pain, photophobia, tearing, throat pain, throat swelling, voice changes, others Respiratory: denies: cough, hemoptysis, orthopnea, SOB at rest, shortness of breath, SOB with excertion, stridor, wheezing, others Cardiovascular: denies: chest pain, dizzy spells, diaphoresis, Dyspnea on exertion, edema, irregular heart beat, left arm pain, lightheadedness, palpitations, PND, syncope, others Gastrointestinal: denies: abdomen distended, abdominal pain, blood streaked bowels, constipated, diarrhea, dysphagia, difficulty swallowing, hematemesis, melena, nausea, poor appetite, poor fluid intake, rectal bleeding, rectal pain, vomiting, others Genitourinary: denies: burning, dysuria, flank pain, frequency, hematuria, incontinence, penile discharge, penile sore, pain, testicle pain, testicle swelling, urgency, others Neurological: denies: dizziness, fainting, headache, left sided numbness, left sided weakness, numbness, paresthesia, pre-existing deficit, right sided numbness, right sided weakness, seizure, speech problems, tingling, tremors, weakness, others Musculoskeletal: denies: back pain, gout, joint pain, joint swelling, muscle pain, muscle stiffness, neck pain, others Integumetry: denies: bruises, change in color, change in hair/nails, dryness, laceration, lesions, lumps, rash, wounds, others Allergic/Immunocompromised: denies: Difficulty Healing, Frequent Infections, Hives, Itching, others Hematologic/Lymphatic: denies: anemia, blood clots, easy bleeding, easy bruising, swollen glands, others Endocrine: denies: excessive hunger, excessive sweating, excessive thirst, excessive urination, flushing, intolerance to cold, intolerance to heat, unexplained weight gain, unexplained weight loss, others Psychiatric: reports: others (As stated in HPI) Physical Exam General Appearance: No Apparent Distress HEENT: PERRL/EOMI Neck: Full Range of Motion, Non-Tender, Normal Respiratory: Chest Non-Tender, Lungs Clear, No Accessory Muscle Use, No Respiratory Distress, Normal Breath Sounds Cardiovascular: No Murmur, No Gallop, Regular Rate/Rhythm Breast Exam: Deferred Gastrointestinal: NOT DONE Genitalia: Deferred Pelvic: Deferred Rectal: Deferred Extremities: Normal capillary refill, Normal range of motion Neurologic: Alert, equipment engineer II-XII nml as 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 Was a procedure done?: No Sedation Sedation?: No Psych Differential Dx Intoxication Differential Dx: Hallucinations, CVA, Dehydration, Drug-Induced Psychosis, Electrolyte Imbalance X-Ray, Labs, Meds, VS Vital Signs Date Time Temp Pulse Resp B/P (MAP) Pulse Ox O2 Delivery O2 Flow Rate FiO2 04/18/24 19:07 98.0 63 20 162/95 (117) 100 98.0 04/18/24 19:07 63 20 100 Room Air 04/18/24 18:24 98.0 63 20 162/95 (117) 100 Vistaril 50 mg p.o. ordered Patient had improvement in symptoms and in no distress prior to discharge Advised to drink plenty of fluids Methamphetamine/smoking/cannabis cessation discussed and advised Advised to follow up with PCP and psychiatrist in 1-2 days Patient alert and oriented x4 prior to discharge. Patient verbalized understanding and agreeable with current plan of care Advised to return to ER immediately if symptoms worsen Images Reviewed?: Images reviewed and evaluated by me Time of 1ST Reevaluation: 19:02 Reevaluation 1ST: N/A Patient Education/Counseling: Diagnosis, Treatment, Prognosis, Need For Follow Up Family Education/Counseling: No Family Present Departure 1 Departure Time of Disposition: 19:22 Impression: Primary Impression: Anxiety Additional Impression: Polysubstance abuse Disposition: HOME / SELF CARE / HOMELESS Condition: Stable e-Prescriptions Hydroxyzine Pamoate (Hydroxyzine Pamoate) 50 Mg Cap 1 CAP PO Q6HPRN, #16 CAP 0 Refills Prov: SARY CARRION 04/18/24 Discharged With: Friend Critical Care Note Critical Care Time?: No Stability Stability form required: No Heart Score Heart Score: Heart Score Response (Comments) Value History N/A 0 EKG N/A 0 Age N/A 0 Risk Factors N/A 0 Troponin N/A 0 Total 0 SARY CARRION Apr 18, 2024 19:27
[2024-04-18] MEDS: hydrOXYzine 25 MG TAB or CAP PO ONE (19:33)
== END 2024-04-18 19:45 | disposition home or self-care (01) ==
LOC: ER 17:44
DX: F41.9 Anxiety disorder, unspecified (principal); F19.10 Other psychoactive substance abuse, uncomplicated; F17.210 Nicotine dependence, cigarettes, uncomplicated; I10 Essential (primary) hypertension; Z59.00 Homelessness unspecified

== ENCOUNTER 2024-07-06 21:42 | Emergency (ER) | payer OTHER ==
[~2024-07-06] VITALS: Ht 175.3 cm; Wt 75.0 kg
[~2024-07-06 21:42] MED LIST changes: +HYDR50CA2 PO
[2024-07-06 21:50] VITALS: BP 142/82; PULSE 84; RESP 16; TEMP 98.2; O2SAT 96
[2024-07-06] MEDS ORDERED: KETOROLAC TROMETH 60MG/2ML VIAL IM ONE (22:00)
--- NOTE | 2024-07-06 22:31 | DVH ---
CLINICAL INDICATION: Proximal pain TECHNIQUE: XY R FEMUR XRAY Comparison: None FINDINGS: No evidence of acute fracture or dislocation. Pins noted in right femoral head. There is complete los s of the right hip joint space along with prominent subchondral cystic change and sclerosis. Knee justin nt appears unremarkable. IMPRESSION: No acute abnormality noted.
[2024-07-06] MEDS ORDERED: HYDR-4902 PO (22:48)
[2024-07-06] MEDS ORDERED: IBUP-1455 PO (22:48)
--- NOTE | 2024-07-06 22:49 | ED.PDOC ---
Musculoskeletal HPI Comments This patient is a homeless 48-year-old male who arrives to the ED today via EMS for evaluation of right femur and right hip concerns. Patient is status post open reduction internal fixation of the right femoral neck and head. Patient states the pain has been severe and he feels that the pins have loosened. Patient denies any recent trauma. Vital signs were stable on arrival. Chief Complaint: Lower Extremity Time Seen by MD: 21:45 Primary Care Provider: ANTONIA [place] Notes: Nurses Notes, Geometry Tutor Notes Allergies: Coded Allergies: NO KNOWN ALLERGIES (Unverified , 09/20/22) Home Meds Active Scripts Hydroxyzine Pamoate (Hydroxyzine Pamoate) 50 Mg Cap, 1 CAP PO Q6HPRN, #16 CAP 0 Refills Prov:SARY CARRION 04/18/24 Hydroxyzine Hcl (Hydroxyzine Hcl) 25 Mg Tab, 1 TAB PO TID, #30 TAB Prov:PETER BULLOCK 02/19/24 Acetaminophen (Tylenol Extra Strength Fo) 500 Mg Tab, 1000 MG PO BID, #30 TAB Prov:MARY MONTES 02/03/24 Promethazine-Dm (Promethazine Dm 6.25-15 mg/5Ml) 1 Delmy Delmy, 5 ML PO TID, #150 ML Prov:MARY MONTES 02/03/24 Cephalexin Monohydrate (Cephalexin) 500 Mg Cap, 1 CAP PO QID, #28 CAP Prov:MARY MONTES 02/03/24 Lorazepam (ATIVAN TABLET) 0.5 Mg Tb, 1 TAB PO BID, #60 TAB Prov:ANN MARIE APODACA MD 12/26/23 Propranolol HCl (Propranolol Hydrochloride) 10 Mg Tab, 1 TAB PO BID PRN for 5 Days, #10 TAB Take 1 tablet by mouth twice daily as needed for anxiety or panic attacks Prov:CAROLINA NAVA 12/23/23 Acetaminophen (Acetaminophen) 325 Mg Tab, 325 MG PO QIDP for 30 Days, #120 TAB 0 Refills Prov:WILLEM ORTEGA NP 06/08/23 Diclofenac Sodium (Topical) (Voltaren Arthritis Pain) 1 % Gel, 1 % EX BIDPRN PRN for 30 Days, #90 GRAMS 0 Refills Prov:WILLEM ORTEGA NP 06/08/23 Meloxicam (Meloxicam) 7.5 Mg Tab, 1 TAB PO DAILY for 30 Days, #30 TAB 0 Refills Prov:WILLEM ORTEGA NP 06/08/23 Multiple Vitamins W/ Minerals (Mvi W/ Minerals Tab) 1 Tab Tb, 1 TAB PO DAILY for 30 Days, #30 TAB Prov:IVETH NICE MD 09/23/22 Sucralfate (CARAFATE SUSP) 1 Gm/10 Ml Ss, 1 GM PO QIDACHS for 30 Days, #120 ML Prov:IVETH NICE MD 09/23/22 Pantoprazole Sodium Sesquihydr (Protonix) 40 Mg Tab, 40 MG PO DAILY for 30 Days, #30 TAB 2 Refills Prov:IVETH NICE MD 09/23/22 Reported Medications No Reported Medication (NO REPORTED MEDICATION) Ea, 0 CO, EA PATIENT HAS NO REPORTED MEDICATIONS 09/22/22 Information Source: Patient, Emergency Med Personnel Mode of Arrival: EMS Location: Right Extremity Location: Leg Timing: Days Prehospital treatment: None Severity: Moderate Able to Move Extremity: Yes Bear Weight: Limited Pain: Moderate Hand Dominance: Right Mechanism: Spontaneous Circumstances: Spontaneous Onset of Symptoms: Spontaneous Symptoms: Pain DVT Risk Factors: NONE Past Medical History PAST MEDICAL HISTORY: Anxiety, HTN Surgical History: Denies all surgeries Surgical History (Other): History of right femoral neck open reduction internal fixation. Family History Family History: Unknown Social History Smoker: Cigarettes, Less Than 1 Pack/Day Alcohol: Occasionally Drugs: Marijuana, Methamphetamine Lives In: Homeless Constitutional: denies: chills, diaphoresis, fatigue, fever, malaise, sweats, weakness, others EENTM: denies: blurred vision, double vision, ear bleeding, ear discharge, ear drainage, ear pain, ear ringing, eye pain, eye redness, hearing loss, mouth pain, mouth swelling, nasal discharge, nose bleeding, nose congestion, nose pa in, photophobia, tearing, throat pain, throat swelling, voice changes, others Respiratory: denies: cough, hemoptysis, orthopnea, SOB at rest, shortness of breath, SOB with excertion, stridor, wheezing, others Cardiovascular: denies: chest pain, dizzy spells, diaphoresis, Dyspnea on exertion, edema, irregular heart beat, left arm pain, lightheadedness, palpitations, PND, syncope, others Gastrointestinal: denies: abdomen distended, abdominal pain, blood streaked bowels, constipated, diarrhea, dysphagia, difficulty swallowing, hematemesis, melena, nausea, poor appetite, poor fluid intake, rectal bleeding, rectal pain, vomiting, others Genitourinary: denies: burning, dysuria, flank pain, frequency, hematuria, incontinence, penile discharge, penile sore, pain, testicle pain, testicle swelling, urgency, others Neurological: denies: dizziness, fainting, headache, left sided numbness, left sided weakness, numbness, paresthesia, pre-existing deficit, right sided numbness, right sided weakness, seizure, speech problems, tingling, tremors, weakness, others Musculoskeletal: reports: others (Right hip and leg concerns); denies: back pain, gout, joint pain, joint swelling, muscle pain, muscle stiffness, neck pain Integumetry: denies: bruises, change in color, change in hair/nails, dryness, laceration, lesions, lumps, rash, wounds, others Allergic/Immunocompromised: denies: Difficulty Healing, Frequent Infections, Hives, Itching, others Hematologic/Lymphatic: denies: anemia, blood clots, easy bleeding, easy bruising, swollen glands, others Endocrine: denies: excessive hunger, excessive sweating, excessive thirst, excessive urination, flushing, intolerance to cold, intolerance to heat, unexplained weight gain, unexplained weight loss, others Psychiatric: denies: anxiety, bipolar disorder, depression, hopeless, panic disorder, schizophrenia, sleepless, suicidal, others Physical Exam Exam Comments Patient is not well kempt and slightly dirty. Patient is homeless. General Appearance: Moderate Distress (Patient was in moderate distress due to right hip pain concerns.), Normal HEENT: Normal ENT Inspection, Pharynx Normal, TMs Normal Neck: Full Range of Motion, Non-Tender, Normal, Normal Inspection Respiratory: Chest Non-Tender, Lungs Clear, No Accessory Muscle Use, No Respiratory Distress, Normal Breath Sounds Cardiovascular: No Edema, No JVD, No Murmur, No Gallop, Normal Peripheral Puls es, Regular Rate/Rhythm Breast Exam: Deferred Gastrointestinal: No Organomegaly, Non Tender, No Pulsatile Mass, Normal Bowel Sounds, Soft Genitalia: Deferred Pelvic: Deferred Rectal: Deferred Extremities: Other (Diffuse lateral right hip tenderness to palpation throughout. No crepitus appreciated. No edema or ecchymosis. Tender to palpation throughout. Moderate reduced range of motion. Patient is able to bear weight, but with difficulty.) Neurologic: Alert, No Motor Deficits, Normal Affect, Normal Mood, No Sensory Deficits Cerebellar Function: Normal Reflexes: Normal Skin: Dry, Normal Color, Warm Lymphatic: No Adenopathy Was a procedure done? Was a procedure done?: No Differential Diagnosis EXT Differential Diagnosis: Fracture, Sprain, Contusion, Strain, Other (Postoperative pain, postoperative hardware concern) X-Ray, Labs, Meds, VS Vital Signs Date Time Temp Pulse Resp B/P (MAP) Pulse Ox O2 Delivery O2 Flow Rate FiO2 07/06/24 21:50 98.2 84 16 142/82 (102) 96 98.2 X-Ray, Labs, Meds, VS Comment All studies performed the ED were evaluated by me personally. Right hip and femoral neck were unremarkable for any loosening of the hardware or acute fractures. Patient does have degenerative joint disease of that hip. Advised patient utilize pain medication as needed and follow up with his primary care provider for discussions related to pain concerns and that hip. Time of 1ST Reevaluation: 22:44 Reevaluation 1ST: Improved Consultation: PCP Patient Education/Counseling: Diagnosis, Treatment Family Education/Counseling: Diagnosis, Treatment Departure 1 Departure Time of Disposition: 22:46 Impression: Primary Impression: Hip pain Disposition: HOME / SELF CARE / HOMELESS Condition: Stable Additional Instructions: Advised pain medication as needed and additionally, patient should follow up with primary care provider for discussions related to hip pain concerns and joint disease issues. e-Prescriptions Hydrocodone-Acetaminophen (Hydrocodone Bitartrate/AC 5-325 mg) 1 Tab Tab 1 TAB PO Q6HP PRN, #10 TAB Prov: CECILIA CARSON PAC 07/06/24 Ibuprofen Micronized (Ibuprofen) 800 Mg Tab 800 MG PO Q8HP PRN, #20 TAB Prov: CECILIA CARSON PAC 07/06/24 Discharged With: Self Critical Care Note Critical Care Time?: No Stability Stability form required: No Heart Score Heart Score: Heart Score Response (Comments) Value History N/A 0 EKG N/A 0 Age N/A 0 Risk Factors N/A 0 Troponin N/A 0 Total 0 CECILIA CARSON PAC July 06, 2024 22:49
[2024-07-07] MEDS ORDERED: IBU600T PO (07:14)
== END 2024-07-07 02:48 | disposition home or self-care (01) ==
LOC: ER 21:42 → EDBD 21:42 → ER 07-07 02:47
DX: M25.551 Pain in right hip (principal); M79.651 Pain in right thigh; I10 Essential (primary) hypertension; F41.9 Anxiety disorder, unspecified; F12.10 Cannabis abuse, uncomplicated; F15.10 Other stimulant abuse, uncomplicated; F17.210 Nicotine dependence, cigarettes, uncomplicated; Z59.00 Homelessness unspecified; Z79.1 Long term (current) use of non-steroidal anti-inflammatories (NSAID); Z79.899 Other long term (current) drug therapy
CPT/HCPCS: J1885

== ENCOUNTER 2024-07-07 06:26 | Emergency (ER) | payer OTHER ==
[~2024-07-07] VITALS: Ht 182.9 cm; Wt 75.0 kg
[~2024-07-07 06:26] MED LIST changes: +HYDR-4902 PO; +IBUP-1455 PO
--- NOTE | 2024-07-07 06:49 | ED.PDOC ---
History of Present Illness HPI Comments 48-year-old male presents to the ER with prior medical history of anxiety, hypertension; surgical history of right femoral neck open reduction internal fixation in the chief complain of right hip pain. Patient stated that he has been having right hip pain for the past two months. Patient was here yesterday but did not inform us. Patient is homeless, and is looking for food do from asking my stomach hurts I want a sandwich . Patient has a pain type of a 10/10. Social history tobacco use, occasional alcohol use, and marijuana use. Denies chills, fever, N/V/D, SOB, CP. No other associated symptoms, modifiers, recent injuries or sick contacts present at this time. Chief Complaint: Lower Extremity Time Seen by MD: 06:35 Primary Care Provider: ANTONIA Reviewed Notes: Nurses Notes, Medications, Allergies Allergies: Coded Allergies: NO KNOWN ALLERGIES (Unverified , 09/20/22) Home Meds Active Scripts Hydrocodone-Acetaminophen (Hydrocodone Bitartrate/AC 5-325 mg) 1 Tab Tab, 1 TAB PO Q6HP PRN, #10 TAB Prov:CECILIA CARSON PAC 07/06/24 Ibuprofen Micronized (Ibuprofen) 800 Mg Tab, 800 MG PO Q8HP PRN, #20 TAB Prov:CECILIA CARSON PAC 07/06/24 Hydroxyzine Pamoate (Hydroxyzine Pamoate) 50 Mg Cap, 1 CAP PO Q6HPRN, #16 CAP 0 Refills Prov:SARY CARRION 04/18/24 Hydroxyzine Hcl (Hydroxyzine Hcl) 25 Mg Tab, 1 TAB PO TID, #30 TAB Prov:PETER BULLOCK 02/19/24 Acetaminophen (Tylenol Extra Strength Fo) 500 Mg Tab, 1000 MG PO BID, #30 TAB Prov:MARY MONTES 02/03/24 Promethazine-Dm (Promethazine Dm 6.25-15 mg/5Ml) 1 Delmy Delmy, 5 ML PO TID, #150 ML Prov:MARY MONTES 02/03/24 Cephalexin Monohydrate (Cephalexin) 500 Mg Cap, 1 CAP PO QID, #28 CAP Prov:MARY MONTES 02/03/24 Lorazepam (ATIVAN TABLET) 0.5 Mg Tb, 1 TAB PO BID, #60 TAB Prov:ANN MARIE APODACA MD 12/26/23 Propranolol HCl (Propranolol Hydrochloride) 10 Mg Tab, 1 TAB PO BID PRN for 5 Days, #10 TAB Take 1 tablet by mouth twice daily as needed for anxiety or panic attacks Prov:ELIJAHCAROLINA HEADLIGHT ADJUSTER 12/23/23 Acetaminophen (Acetaminophen) 325 Mg Tab, 325 MG PO QIDP for 30 Days, #120 TAB 0 Refills Prov:WILLEM ORTEGA NP 06/08/23 Diclofenac Sodium (Topical) (Voltaren Arthritis Pain) 1 % Gel, 1 % EX BIDPRN PRN for 30 Days, #90 GRAMS 0 Refills Prov:WILLEM ORTEGA NP 06/08/23 Meloxicam (Meloxicam) 7.5 Mg Tab, 1 TAB PO DAILY for 30 Days, #30 TAB 0 Refills Prov:WILLEM ORTEGA NP 06/08/23 Multiple Vitamins W/ Minerals (Mvi W/ Minerals Tab) 1 Tab Tb, 1 TAB PO DAILY for 30 Days, #30 TAB Prov:IVETH NICE MD 09/23/22 Sucralfate (CARAFATE SUSP) 1 Gm/10 Ml Ss, 1 GM PO QIDACHS for 30 Days, #120 ML Prov:IVETH NICE MD 09/23/22 Pantoprazole Sodium Sesquihydr (Protonix) 40 Mg Tab, 40 MG PO DAILY for 30 Days, #30 TAB 2 Refills Prov:IVETH NICE MD 09/23/22 Reported Medications No Reported Medication (NO REPORTED MEDICATION) Ea, 0 CO, EA PATIENT HAS NO REPORTED MEDICATIONS 09/22/22 Information Source: Patient Mode of Arrival: Ambulatory Severity: Moderate Timing: Months Duration: Since onset Prehospital treatment: None Past Medical History PAST MEDICAL HISTORY: Anxiety, HTN Surgical History (Other): Right femoral neck open reduction internal fixation Family History Family History: Reviewed,noncontributory to illness, Unknown Social History Smoker: Cigarettes, Less Than 1 Pack/Day Alcohol: Occasionally Drugs: Marijuana, Methamphetamine (Unknown-did not inform us) Lives In: Homeless Constitutional: denies: chills, diaphoresis, fatigue, fever, malaise, sweats, weakness, others EENTM: denies: blurred vision, double vision, ear bleeding, ear discharge, ear drainage, ear pain, ear ringing, eye pain, eye redness, hearing loss, mouth pain, mouth swelling, nasal discharge, nose bleeding, nose congestion, nose pain, photophobia, tearing, throat pain, throat swelling, voice changes, others Respiratory: denies: cough, hemoptysis, orthopnea, SOB at rest, shortness of breath, SOB with excertion, stridor, wheezing, others Cardiovascular: denies: chest pain, dizzy spells, diaphoresis, Dyspnea on exertion, edema, irregular heart beat, left arm pain, lightheadedness, palpitations, PND, syncope, others Gastrointestinal: denies: abdomen distended, abdominal pain, blood streaked bowels, constipated, diarrhea, dysphagia, difficulty swallowing, hematemesis, melena, nausea, poor appetite, poor fluid intake, rectal bleeding, rectal pain, vomiting, others Genitourinary: denies: burning, dysuria, flank pain, frequency, hematuria, incontinence, penile discharge, penile sore, pain, testicle pain, testicle swelling, urgency, others Neurological: denies: dizziness, fainting, headache, left sided numbness, left sided weakness, numbness, paresthesia, pre-existing deficit, right sided numbness, right sided weakness, seizure, speech problems, tingling, tremors, weakness, others Musculoskeletal: reports: others (Right hip pain, I want a sandwich); denies: back pain, gout, joint pain, joint swelling, muscle pain, muscle stiffness, neck pain Integumetry: denies: bruises, change in color, change in hair/nails, dryness, laceration, lesions, lumps, rash, wounds, others Allergic/Immunocompromised: denies: Difficulty Healing, Frequent Infections, Hives, Itching, others Hematologic/Lymphatic: denies: anemia, blood clots, easy bleeding, easy bruising, swollen glands, others Endocrine: denies: excessive hunger, excessive sweating, excessive thirst, excessive urination, flushing, intolerance to cold, intolerance to heat, unexplained weight gain, unexplained weight loss, others Psychiatric: denies: anxiety, bipolar disorder, depression, hopeless, panic disorder, schizophrenia, sleepless, suicidal, others All Other Systems: Reviewed and Negative Physical Exam General Appearance: No Apparent Distress, Normal HEENT: Normal ENT Inspection, Pharynx Normal, TMs Normal Neck: Full Range of Motion, Non-Tender, Normal, Normal Inspection Respiratory: Chest Non-Tender, Lungs Clear, No Accessory Muscle Use, No Respiratory Distress, Normal Breath Sounds Cardiovascular: No Edema, No JVD, No Murmur, No Gallop, Normal Peripheral Pulses, Regular Rate/Rhythm Breast Exam: Deferred Gastrointestinal: No Organomegaly, Non Tender, No Pulsatile Mass, Normal Bowel Sounds, Soft Genitalia: Deferred Pelvic: Deferred Rectal: Deferred Extremities: No calf tenderness, Normal capillary refill, Normal inspection, Normal range of motion, Non-tender, No pedal edema Musculoskeletal : Apperance: Normal Neurologic: Alert, wood heel flap rubber II-XII nml as Tested, No Motor Deficits, Normal Affect, Normal Mood, No Sensory Deficits Cerebellar Function: NOT DONE Reflexes: NOT DONE Skin: Dry, Normal Color, Warm Peripheral Pulses: 3+ Radial (R), 3+ Radial (L) Lymphatic: No Adenopathy Was a procedure done? Was a procedure done?: No Differential Dx Considerations may include: Chronic pain syndrome Muscle strain X-Ray, Labs, Meds, VS Vital Signs Date Time Temp Pulse Resp B/P (MAP) Pulse Ox O2 Delivery O2 Flow Rate FiO2 07/07/24 06:36 97.8 60 16 132/82 (99) 99 97.8 Patient alert. Complaining of right hip pain. Was seen here yesterday for the same symptom. Vitals stable. No injuries. Moving all extremities. Reviewed his previous visit. He does smoke cigarettes. Counseled patient on effects of smoking cigarettes for 15 minutes. X-ray which was done yesterday reviewed does not show any acute process. Was given prescription of Motrin. Explained to the patient at 7:30 a.m. that he will be discharged with pain medication. Was told to follow up with his primary care physician. Was told to come back if there is any problem. Time of 1ST Reevaluation: 07:05 Reevaluation 1ST: Improved Patient Education/Counseling: Diagnosis, Treatment, Prognosis Family Education/Counseling: No Family Present Departure 1 Departure Time of Disposition: 07:13 Impression: Primary Impression: Chronic pain syndrome Additional Impression: Muscle strain Disposition: 01 HOME / SELF CARE / HOMELESS Condition: Good e-Prescriptions Ibuprofen Micronized (MOTRIN TABLET) 600 Mg Tb 600 MG PO TID PRN for 3 Days, #9 TAB *Black box warning-NSAIDS can increase risk of AL & hypertension, GI irritation, ulceration, bleed, perferation. Do not use post cardiac surgery. Use short duration/lowest effective dose. Prov: MATEUS THAKUR MD 07/07/24 Discharged With: Self Critical Care Note Critical Care Time?: No Stability Stability form required: No Heart Score Heart Score: Heart Score Response (Comments) Value History N/A 0 EKG N/A 0 Age N/A 0 Risk Factors N/A 0 Troponin N/A 0 Total 0 I personally scribed for MATEUS THAKUR MD ([email or web address]) on 07/07/24 at 06:49. Electronically submitted by Rolly Camilo ([email or web address]). MATEUS THAKUR MD July 07, 2024 06:49
[2024-07-07] MEDS ORDERED: IBU600T PO (07:14)
[2024-07-07 07:38] VITALS: BP 115/80; PULSE 64; RESP 18; TEMP 98.7; O2SAT 100
== END 2024-07-07 07:42 | disposition home or self-care (01) ==
LOC: ER 06:26
DX: S76.011A Strain of muscle, fascia and tendon of right hip, initial encounter (principal); G89.4 Chronic pain syndrome; F17.210 Nicotine dependence, cigarettes, uncomplicated; F41.9 Anxiety disorder, unspecified; I10 Essential (primary) hypertension; Z59.00 Homelessness unspecified; Z79.1 Long term (current) use of non-steroidal anti-inflammatories (NSAID); Z79.899 Other long term (current) drug therapy; X58.XXXA Exposure to other specified factors, initial encounter; Y93.89 Activity, other specified; Y92.89 Other specified places as the place of occurrence of the external cause; Y99.8 Other external cause status

== ENCOUNTER 2024-09-07 22:04 | Emergency (ER) | payer OTHER ==
[~2024-09-07] VITALS: Ht 182.9 cm; Wt 90.0 kg
[~2024-09-07 22:04] MED LIST changes: +IBU600T PO
[2024-09-08] MEDS: LORazepam 0.5 MG TAB PO ONE (00:06)
[2024-09-08] MEDS ORDERED: LORA-1121 PO (00:35)
--- NOTE | 2024-09-08 00:37 | ED.PDOC ---
History of Present Illness HPI Comments Patient is a 48-year-old male who arrives to the ED today with generalized complaints of chronic right leg pain concerns and intermittent diffuse abdominal concerns. Patient states his primary concern in his anxiety related and states his symptoms began earlier and have continued. Patient has a history of Ativan use, but states he currently does not have any medications nor is he seeing a psychiatrist or mental health provider. Chief Complaint: General Weakness Time Seen by MD: 22:06 Primary Care Provider: ANTONIA [place] Notes: Nurses Notes Allergies: Coded Allergies: NO KNOWN ALLERGIES (Unverified , 09/20/22) Home Meds Active Scripts Ibuprofen Micronized (MOTRIN TABLET) 600 Mg Tb, 600 MG PO TID PRN for 3 Days, #9 TAB *Black box warning-NSAIDS can increase risk of [place] & hypertension, GI irritation, ulceration, bleed, perferation. Do not use post cardiac surgery. Use short duration/lowest effective dose. Prov:MATEUS THAKUR MD 07/07/24 Hydrocodone-Acetaminophen (Hydrocodone Bitartrate/AC 5-325 mg) 1 Tab Tab, 1 TAB PO Q6HP PRN, #10 TAB Prov:CECILIA CARSON PAC 07/06/24 Ibuprofen Micronized (Ibuprofen) 800 Mg Tab, 800 MG PO Q8HP PRN, #20 TAB Prov:CECILIA CARSON PAC 07/06/24 Hydroxyzine Pamoate (Hydroxyzine Pamoate) 50 Mg Cap, 1 CAP PO Q6HPRN, #16 CAP 0 Refills Prov:SARY CARRION 04/18/24 Hydroxyzine Hcl (Hydroxyzine Hcl) 25 Mg Tab, 1 TAB PO TID, #30 TAB Prov:PETER BULLOCK 02/19/24 Acetaminophen (Tylenol Extra Strength Fo) 500 Mg Tab, 1000 MG PO BID, #30 TAB Prov:MARY MONTES 02/03/24 Promethazine-Dm (Promethazine Dm 6.25-15 mg/5Ml) 1 Delmy Delmy, 5 ML PO TID, #150 ML Prov:MARY MONTES 02/03/24 Cephalexin Monohydrate (Cephalexin) 500 Mg Cap, 1 CAP PO QID, #28 CAP Prov:MARY MONTES 02/03/24 Lorazepam (ATIVAN TABLET) 0.5 Mg Tb, 1 TAB PO BID, #60 TAB Prov:ANN MARIE APODACA MD 12/26/23 Propranolol HCl (Propranolol Hydrochloride) 10 Mg Tab, 1 TAB PO BID PRN for 5 Days, #10 TAB Take 1 tablet by mouth twice daily as needed for anxiety or panic attacks Prov:ELIJAHCAROLINA DOOR SLINGER 12/23/23 Acetaminophen (Acetaminophen) 325 Mg Tab, 325 MG PO QIDP for 30 Days, #120 TAB 0 Refills Prov:WILLEM ORTEGA NP 06/08/23 Diclofenac Sodium (Topical) (Voltaren Arthritis Pain) 1 % Gel, 1 % EX BIDPRN PRN for 30 Days, #90 GRAMS 0 Refills Prov:WILLEM ORTEGA NP 06/08/23 Meloxicam (Meloxicam) 7.5 Mg Tab, 1 TAB PO DAILY for 30 Days, #30 TAB 0 Refills Prov:WILLEM ORTEGA NP 06/08/23 Multiple Vitamins W/ Minerals (Mvi W/ Minerals Tab) 1 Tab Tb, 1 TAB PO DAILY for 30 Days, #30 TAB Prov:IVETH NICE MD 09/23/22 Sucralfate (CARAFATE SUSP) 1 Gm/10 Ml Ss, 1 GM PO QIDACHS for 30 Days, #120 ML Prov:IVETH NICE MD 09/23/22 Pantoprazole Sodium Sesquihydr (Protonix) 40 Mg Tab, 40 MG PO DAILY for 30 Days, #30 TAB 2 Refills Prov:IVETH NICE MD 09/23/22 Reported Medications No Reported Medication (NO REPORTED MEDICATION) Ea, 0 CO, EA PATIENT HAS NO REPORTED MEDICATIONS 09/22/22 Information Source: Patient Mode of Arrival: Ambulatory Severity: Moderate Timing: Hours Duration: Since onset Prehospital treatment: None Past Medical History PAST MEDICAL HISTORY: Anxiety, HTN Surgical History: Denies all surgeries Family History Family History: Reviewed,noncontributory to illness, Unknown Social History Smoker: Cigarettes, Less Than 1 Pack/Day Alcohol: Occasionally Drugs: Marijuana, Methamphetamine Lives In: Homeless Constitutional: denies: chills, diaphoresis, fatigue, fever, malaise, sweats, weakness, others EENTM: denies: blurred vision, double vision, ear bleeding, ear discharge, ear drainage, ear pain, ear ringing, eye pain, eye redness, hearing loss, mouth pain, mouth swelling, nasal discharge, nose bleeding, nose congestion, nose pain, photophobia, tearing, throat pain, throat swelling, voice changes, others Respiratory: denies: cough, hemoptysis, orthopnea, SOB at rest, shortness of breath, SOB with excertion, stridor, wheezing, others Cardiovascular: denies: chest pain, dizzy spells, diaphoresis, Dyspnea on exertion, edema, irregular heart beat, left arm pain, lightheadedness, palpitations, PND, syncope, others Gastrointestinal: denies: abdomen distended, abdominal pain, blood streaked bowels, constipated, diarrhea, dysphagia, difficulty swallowing, hematemesis, melena, nausea, poor appetite, poor fluid intake, rectal bleeding, rectal pain, vomiting, others Genitourinary: denies: burning, dysuria, flank pain, frequency, hematuria, incontinence, penile discharge, penile sore, pain, testicle pain, testicle swelling, urgency, others Neurological: denies: dizziness, fainting, headache, left sided numbness, left sided weakness, numbness, paresthesia, pre-existing deficit, right sided numbness, right sided weakness, seizure, speech problems, tingling, tremors, weakness, others Musculoskeletal: denies: back pain, gout, joint pain, joint swelling, muscle pain, muscle stiffness, neck pain, others Integumetry: denies: bruises, change in color, change in hair/nails, dryness, laceration, lesions, lumps, rash, wounds, others Allergic/Immunocompromised: denies: Difficulty Healing, Frequent Infections, Hives, Itching, others Hematologic/Lymphatic: denies: anemia, blood clots, easy bleeding, easy bruising, swollen glands, others Endocrine: denies: excessive hunger, excessive sweating, excessive thirst, excessive urination, flushing, intolerance to cold, intolerance to heat, unexplained weight gain, unexplained weight loss, others Psychiatric: reports: anxiety; denies: bipolar disorder, depression, hopeless, panic disorder, schizophrenia, sleepless, suicidal, others Physical Exam General Appearance: Moderate Distress (Moderate distress due to anxiety related concerns. Patient was dirty and appears not well kempt.), Normal HEENT: Normal ENT Inspection, Pharynx Normal, TMs Normal Neck: Full Range of Motion, Non-Tender, Normal, Normal Inspection Respiratory: Chest Non-Tender, Lungs Clear, No Accessory Muscle Use, No Respiratory Distress, Normal Breath Sounds Cardiovascular: No Edema, No JVD, No Murmur, No Gallop, Normal Peripheral Pulses, Regular Rate/Rhythm Breast Exam: Deferred Gastrointestinal: No Organomegaly, Non Tender, No Pulsatile Mass, Normal Bowel Sounds, Soft Genitalia: Deferred Pelvic: Deferred Rectal: Deferred Extremities: No calf tenderness, Normal capillary refill, No pedal edema Neurologic: Alert, Normal Affect Cerebellar Function: NOT DONE Reflexes: NOT DONE Skin: Dry, Normal Color, Warm Lymphatic: No Adenopathy Was a procedure done? Was a procedure done?: No Differential Dx Considerations may include: Anxiety, chronic leg pain X-Ray, Labs, Meds, VS Vital Signs Date Time Temp Pulse Resp B/P (MAP) Pulse Ox O2 Delivery O2 Flow Rate FiO2 09/07/24 23:56 75 18 99 Room Air 09/07/24 23:56 98.1 75 18 151/100 (117) 99 98.1 09/07/24 22:25 98.2 86 14 145/100 (115) 94 98.2 Current Medications Medications (Trade) Dose Ordered Sig/Edwardo Route Start Time Stop Time Status Last Admin Lorazepam (Ativan Tablet) 0.5 mg ONCE ONCE PO 09/07/24 23:00 09/07/24 23:01 DC 09/08/24 00:06 X-Ray, Labs, Meds, VS Comment Patient received a small dose of Ativan prior to discharge. Advised patient that he needs to establish a regular mental health evaluate her to aid him in his anxiety medication needs. Time of 1ST Reevaluation: 00:34 Reevaluation 1ST: Improved Consultation: PCP, Psychiatry Patient Education/Counseling: Diagnosis, Treatment Family Education/Counseling: Diagnosis, Treatment SEPSIS Sepsis Screen Date sepsis recognized/suspect: Sep 07, 2024 Time Sepsis recognized/suspect: 2224 Recent Procedure: No On Antibiotic Therapy: No Respiratory Rate >20: No Heart Rate >90: No Temp<36 C (96.8 F) or >38.3 C: No SBP <90 or MAP <65 mmHG: No New Acute Mental Status Change: No Is the patient on CPAP, BIPAP,: No Vital Signs Date Time Temp Pulse Resp B/P (MAP) Pulse Ox O2 Delivery O2 Flow Rate FiO2 09/07/24 23:56 75 18 99 Room Air 09/07/24 23:56 98.1 75 18 151/100 (117) 99 98.1 09/07/24 22:25 98.2 86 14 145/100 (115) 94 98.2 Medications Medications Dose Ordered Sig/Edwardo Route Start Time Stop Time Status Last Admin Dose Admin Lorazepam 0.5 mg ONCE ONCE PO 09/07/24 23:00 09/07/24 23:01 DC 09/08/24 00:06 Departure 1 Departure Time of Disposition: 00:34 Impression: Primary Impression: Anxiety Disposition: 01 HOME / SELF CARE / HOMELESS Condition: Stable Additional Instructions: Advised patient utilize medication as needed for symptomatic relief in additionally, patient needs to follow up with a mental health evaluate her or psychiatrist for long-term management of his anxiety concerns. e-Prescriptions Lorazepam (ATIVAN TABLET) 0.5 Mg Tb 1 TAB PO TID, #10 TAB Prov: CECILIA CARSON PAC 09/08/24 Discharged With: Self, Friend Critical Care Note Critical Care Time?: No Stability Stability form required: No Heart Score Heart Score: Heart Score Response (Comments) Value History N/A 0 EKG N/A 0 Age N/A 0 Risk Factors N/A 0 Troponin N/A 0 Total 0 CECILIA CARSON PAC Sep 08, 2024 00:37
[2024-09-08] MEDS: ACETAMINOPHEN 325 MG TAB PO ONE (01:04)
[2024-09-08 01:17] VITALS: BP 171/95; PULSE 68; RESP 18; TEMP 98.2; O2SAT 98
== END 2024-09-08 01:30 | disposition home or self-care (01) ==
LOC: ER 22:04
DX: F41.9 Anxiety disorder, unspecified (principal); R10.84 Generalized abdominal pain; M79.604 Pain in right leg; I10 Essential (primary) hypertension; F17.210 Nicotine dependence, cigarettes, uncomplicated; Z79.899 Other long term (current) drug therapy

== ENCOUNTER 2024-09-29 01:49 | Emergency (ER) | payer OTHER ==
[~2024-09-29] VITALS: Ht 182.9 cm; Wt 71.9 kg
--- NOTE | 2024-09-29 02:21 | ED.PDOC ---
History of Present Illness HPI Comments This patient is a 48-year-old homeless male who arrives the ED today with a some pain medication and anxiety medication due to right knee pain and anxiety concerns. Patient states he has had anxiety events for quite some time but has never followed up with mental health. Patient states he has had a difficult time locating a primary care provider. Additionally, patient complains of right lateral thigh pain that he states is chronic. Patient denies any recent trauma. Patient was hypertensive at arrival. 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 Chief Complaint: Anxiety Time Seen by MD: 01:52 Primary Care Provider: ANTONIA Reviewed Notes: Nurses Notes Allergies: Coded Allergies: NO KNOWN ALLERGIES (Unverified , 09/20/22) Home Meds Active Scripts Ibuprofen Micronized (Ibuprofen) 800 Mg Tab, 800 MG PO Q8HP PRN, #20 TAB Prov:CECILIA CARSON PAC 09/29/24 Lorazepam (ATIVAN TABLET) 0.5 Mg Tb, 1 TAB PO TID, #10 TAB Prov:CECILIA CARSON PAC 09/08/24 Ibuprofen Micronized (MOTRIN TABLET) 600 Mg Tb, 600 MG PO TID PRN for 3 Days, #9 TAB *Black box warning-NSAIDS can increase risk of MT & hypertension, GI irritation, ulceration, bleed, perferation. Do not use post cardiac surgery. Use short duration/lowest effective dose. Prov:MATEUS THAKUR MD 07/07/24 Hydrocodone-Acetaminophen (Hydrocodone Bitartrate/AC 5-325 mg) 1 Tab Tab, 1 TAB PO Q6HP PRN, #10 TAB Prov:CECILIA CARSON PAC 07/06/24 Ibuprofen Micronized (Ibuprofen) 800 Mg Tab, 800 MG PO Q8HP PRN, #20 TAB Prov:CECILIA CARSON PAC 07/06/24 Hydroxyzine Pamoate (Hydroxyzine Pamoate) 50 Mg Cap, 1 CAP PO Q6HPRN, #16 CAP 0 Refills Prov:SARY CARRION 04/18/24 Hydroxyzine Hcl (Hydroxyzine Hcl) 25 Mg Tab, 1 TAB PO TID, #30 TAB Prov:PETER BULLOCK 02/19/24 Acetaminophen (Tylenol Extra Strength Fo) 500 Mg Tab, 1000 MG PO BID, #30 TAB Prov:MARY MONTES 02/03/24 Promethazine-Dm (Promethazine Dm 6.25-15 mg/5Ml) 1 Delmy Delmy, 5 ML PO TID, #150 ML Prov:MARY MONTES 02/03/24 Cephalexin Monohydrate (Cephalexin) 500 Mg Cap, 1 CAP PO QID, #28 CAP Prov:MARY MONTES 02/03/24 Lorazepam (ATIVAN TABLET) 0.5 Mg Tb, 1 TAB PO BID, #60 TAB Prov:ANN MARIE APODACA MD 12/26/23 Propranolol HCl (Propranolol Hydrochloride) 10 Mg Tab, 1 TAB PO BID PRN for 5 Days, #10 TAB Take 1 tablet by mouth twice daily as needed for anxiety or panic attacks Prov:CAROLINA NAVA 12/23/23 Acetaminophen (Acetaminophen) 325 Mg Tab, 325 MG PO QIDP for 30 Days, #120 TAB 0 Refills Prov:WILLEM ORTEGA NP 06/08/23 Diclofenac Sodium (Topical) (Voltaren Arthritis Pain) 1 % Gel, 1 % EX BIDPRN PRN for 30 Days, #90 GRAMS 0 Refills Prov:WILLEM ORTEGA NP 06/08/23 Meloxicam (Meloxicam) 7.5 Mg Tab, 1 TAB PO DAILY for 30 Days, #30 TAB 0 Refills Prov:WILLEM ORTEGA NP 06/08/23 Multiple Vitamins W/ Minerals (Mvi W/ Minerals Tab) 1 Tab Tb, 1 TAB PO DAILY for 30 Days, #30 TAB Prov:IVETH NICE MD 09/23/22 Sucralfate (CARAFATE SUSP) 1 Gm/10 Ml Ss, 1 GM PO QIDACHS for 30 Days, #120 ML Prov:IVETH NICE MD 09/23/22 Pantoprazole Sodium Sesquihydr (Protonix) 40 Mg Tab, 40 MG PO DAILY for 30 Days, #30 TAB 2 Refills Prov:IVETH NICE MD 09/23/22 Reported Medications No Reported Medication (NO REPORTED MEDICATION) Ea, 0 CO, EA PATIENT HAS NO REPORTED MEDICATIONS 09/22/22 Information Source: Patient Mode of Arrival: Ambulatory Severity: Moderate Timing: Days Duration: Intermittent Prehospital treatment: None Past Medical History PAST MEDICAL HISTORY: Anxiety, HTN Surgical History: Denies all surgeries Family History Family History: Reviewed,noncontributory to illness, Unknown Social History Smoker: Cigarettes, Less Than 1 Pack/Day Alcohol: Occasionally Drugs: Marijuana, Methamphetamine Lives In: Homeless Constitutional: denies: chills, diaphoresis, fatigue, fever, malaise, sweats, weakness, others EENTM: denies: blurred vision, double vision, ear bleeding, ear discharge, ear drainage, ear pain, ear ringing, eye pain, eye redness, hearing loss, mouth pain, mouth swelling, nasal discharge, nose bleeding, nose congestion, nose pain, photophobia, tearing, throat pain, throat swelling, voice changes, others Respiratory: denies: cough, hemoptysis, orthopnea, SOB at rest, shortness of breath, SOB with excertion, stridor, wheezing, others Cardiovascular: denies: chest pain, dizzy spells, diaphoresis, Dyspnea on exer tion, edema, irregular heart beat, left arm pain, lightheadedness, palpitations, PND, syncope, others Gastrointestinal: denies: abdomen distended, abdominal pain, blood streaked bowels, constipated, diarrhea, dysphagia, difficulty swallowing, hematemesis, melena, nausea, poor appetite, poor fluid intake, rectal bleeding, rectal pain, vomiting, others Genitourinary: denies: burning, dysuria, flank pain, frequency, hematuria, incontinence, penile discharge, penile sore, pain, testicle pain, testicle swelling, urgency, others Neurological: denies: dizziness, fainting, headache, left sided numbness, left sided weakness, numbness, paresthesia, pre-existing deficit, right sided numbness, right sided weakness, seizure, speech problems, tingling, tremors, weakness, others Musculoskeletal: reports: others (Right leg pain concerns); denies: back pain, gout, joint pain, joint swelling, muscle pain, muscle stiffness, neck pain Integumetry: denies: bruises, change in color, change in hair/nails, dryness, laceration, lesions, lumps, rash, wounds, others Allergic/Immunocompromised: denies: Difficulty Healing, Frequent Infections, Hives, Itching, others Hematologic/Lymphatic: denies: anemia, blood clots, easy bleeding, easy bruis ing, swollen glands, others Endocrine: denies: excessive hunger, excessive sweating, excessive thirst, exc essive urination, flushing, intolerance to cold, intolerance to heat, unexplained weight gain, unexplained weight loss, others Psychiatric: reports: anxiety; denies: bipolar disorder, depression, hopeless, panic disorder, schizophrenia, sleepless, suicidal, others Physical Exam General Appearance: Moderate Distress ([id number] distress due to anxiety and leg concerns), Normal HEENT: Normal ENT Inspection, Pharynx Normal, TMs Normal Neck: Full Range of Motion, Non-Tender, Normal, Normal Inspection Respiratory: Chest Non-Tender, Lungs Clear, No Accessory Muscle Use, No Respiratory Distress, Normal Breath Sounds Cardiovascular: No Edema, No JVD, No Murmur, No Gallop, Normal Peripheral Pulses, Regular Rate/Rhythm Breast Exam: Deferred Gastrointestinal: No Organomegaly, Non Tender, No Pulsatile Mass, Normal Bowel Sounds, Soft Genitalia: Deferred Pelvic: Deferred Rectal: Deferred Extremities: Other (Diffuse lateral right thigh and tenderness patient. No signs of trauma. No edema or ecchymosis. Patient denies any low back pain.) Neurologic: Alert Cerebellar Function: NOT DONE Reflexes: NOT DONE Skin: Dry, Normal Color, Warm Lymphatic: No Adenopathy Was a procedure done? Was a procedure done?: No Differential Dx Considerations may include: Illicit drug use, anxiety, depression, homeless X-Ray, Labs, Meds, VS Vital Signs Date Time Temp Pulse Resp B/P (MAP) Pulse Ox O2 Delivery O2 Flow Rate FiO2 09/29/24 01:52 97.9 88 18 155/98 100 97.9 X-Ray, Labs, Meds, VS Comment Spent time discussing the patient's concerns with him. Advised the patient to come back during the week in the daytime for a social service evaluation to possibly help get him placed in a facility were he can start to work on his anxiety issues and cessation of illicit drugs. Time of 1ST Reevaluation: 02:19 Reevaluation 1ST: Improved Consultation: PCP, Psychiatry Patient Education/Counseling: Diagnosis, Treatment Family Education/Counseling: Diagnosis, Treatment SEPSIS Sepsis Screen Date sepsis recognized/suspect: Sep 29, 2024 Time Sepsis recognized/suspect: 0152 Recent Procedure: No On Antibiotic Therapy: No Respiratory Rate >20: No Heart Rate >90: No Temp<36 C (96.8 F) or >38.3 C: No SBP <90 or MAP <65 mmHG: No New Acute Mental Status Change: No Is the patient on CPAP, BIPAP,: No Vital Signs Date Time Temp Pulse Resp B/P (MAP) Pulse Ox O2 Delivery O2 Flow Rate FiO2 09/29/24 01:52 97.9 88 18 155/98 100 97.9 Departure 1 Departure Time of Disposition: 02:19 Impression: Primary Impression: Leg pain Additional Impression: Anxiety Disposition: HOME / SELF CARE / HOMELESS Condition: Stable Additional Instructions: Advised that patient to either follow up with the primary care provider or, return to this facility during the week days for social service assistance to help get him placed with the primary provider and possible housing support. e-Prescriptions Ibuprofen Micronized (Ibuprofen) 800 Mg Tab 800 MG PO Q8HP PRN, #20 TAB Prov: CECILIA CARSON PAC 09/29/24 Discharged With: Self Critical Care Note Critical Care Time?: No Stability Stability form required: No Heart Score Heart Score: Heart Score Response (Comments) Value History N/A 0 EKG N/A 0 Age N/A 0 Risk Factors N/A 0 Troponin N/A 0 Total 0 CECILIA CARSON PAC Sep 29, 2024 02:21
[2024-09-29 03:00] VITALS: PULSE 81; RESP 18; O2SAT 100
[2024-09-29] MEDS: KETOROLAC TROMETH 60MG/2ML VIAL IM ONE (03:09)
[2024-09-29] MEDS: ALPRAZolam 0.5 MG TAB PO ONE (03:09)
[2024-09-29 04:04] VITALS: BP 168/94; PULSE 81; RESP 18; TEMP 98.2; O2SAT 100
== END 2024-09-29 04:16 | disposition home or self-care (01) ==
LOC: ER 01:49
DX: M25.561 Pain in right knee (principal); F41.9 Anxiety disorder, unspecified; I10 Essential (primary) hypertension; F17.210 Nicotine dependence, cigarettes, uncomplicated; Z79.899 Other long term (current) drug therapy; Z59.00 Homelessness unspecified
CPT/HCPCS: 96372; 99283; J1885

== ENCOUNTER 2024-10-27 20:42 | Emergency (ER) | payer OTHER ==
[~2024-10-27] VITALS: Ht 180.3 cm; Wt 74.6 kg
--- NOTE | 2024-10-27 21:18 | ED.PDOC ---
HPI Comments This is a 48 year-old male, with a Hx of Anxiety and HTN, who presents to the ED via wheelchair with a chief complaint of R sided chest pain with associated headache for the past few days status post trauma sustained in the right side of his chest. Patient states he wants an XRAY of his heart. Patient states chest pain is constant, non-radiating, with no known relieving factors. Patient additionally reports needing a medication refill for Anxiety, as he is currently experiencing "racing thoughts." Patient reports typically taking Ativan and Zoloft for anxiety. Patient has no further complaints or symptoms at this time. Patient otherwise denies palpitations, SOB, cough, SI, HI, visual hallucinations, auditory hallucinations, N/V/D, or dizziness. Chief Complaint: Anxiety Time Seen by MD: 21:08 Primary Care Provider: ANTONIA Reviewed Notes: Nurses Notes, Medications, Allergies Allergies: Coded Allergies: NO KNOWN ALLERGIES (Unverified , 09/20/22) Home Meds Active Scripts Ibuprofen Micronized (Ibuprofen) 800 Mg Tab, 800 MG PO Q8HP PRN, #20 TAB Prov:CECILIA CARSON PAC 09/29/24 Lorazepam (ATIVAN TABLET) 0.5 Mg Tb, 1 TAB PO TID, #10 TAB Prov:CECILIA CARSON PAC 09/08/24 Ibuprofen Micronized (MOTRIN TABLET) 600 Mg Tb, 600 MG PO TID PRN for 3 Days, #9 TAB *Black box warning-NSAIDS can increase risk of [place] & hypertension, GI irritation, ulceration, bleed, perferation. Do not use post cardiac surgery. Use short duration/lowest effective dose. Prov:MATEUS THAKUR MD 07/07/24 Hydrocodone-Acetaminophen (Hydrocodone Bitartrate/AC 5-325 mg) 1 Tab Tab, 1 TAB PO Q6HP PRN, #10 TAB Prov:CECILIA CARSON PAC 07/06/24 Ibuprofen Micronized (Ibuprofen) 800 Mg Tab, 800 MG PO Q8HP PRN, #20 TAB Prov:CECILIA CARSON PAC 07/06/24 Hydroxyzine Pamoate (Hydroxyzine Pamoate) 50 Mg Cap, 1 CAP PO Q6HPRN, #16 CAP 0 Refills Prov:SARY CARRION 04/18/24 Hydroxyzine Hcl (Hydroxyzine Hcl) 25 Mg Tab, 1 TAB PO TID, #30 TAB Prov:PETER BULLOCKP 02/19/24 Acetaminophen (Tylenol Extra Strength Fo) 500 Mg Tab, 1000 MG PO BID, #30 TAB Prov:MARY MONTES 02/03/24 Promethazine-Dm (Promethazine Dm 6.25-15 mg/5Ml) 1 Delmy Delmy, 5 ML PO TID, #150 ML Prov:MARY MONTES 02/03/24 Cephalexin Monohydrate (Cephalexin) 500 Mg Cap, 1 CAP PO QID, #28 CAP Prov:MARY MONTES 02/03/24 Lorazepam (ATIVAN TABLET) 0.5 Mg Tb, 1 TAB PO BID, #60 TAB Prov:ANN MARIE APODACA MD 12/26/23 Propranolol HCl (Propranolol Hydrochloride) 10 Mg Tab, 1 TAB PO BID PRN for 5 Days, #10 TAB Take 1 tablet by mouth twice daily as needed for anxiety or panic attacks Prov:CAROLINA NAVA 12/23/23 Acetaminophen (Acetaminophen) 325 Mg Tab, 325 MG PO QIDP for 30 Days, #120 TAB 0 Refills Prov:WILLEM ORTEGA NP 06/08/23 Diclofenac Sodium (Topical) (Voltaren Arthritis Pain) 1 % Gel, 1 % EX BIDPRN PRN for 30 Days, #90 GRAMS 0 Refills Prov:WILLEM ORTEGA NP 06/08/23 Meloxicam (Meloxicam) 7.5 Mg Tab, 1 TAB PO DAILY for 30 Days, #30 TAB 0 Refills Prov:WILLEM ORTEGA NP 06/08/23 Multiple Vitamins W/ Minerals (Mvi W/ Minerals Tab) 1 Tab Tb, 1 TAB PO DAILY for 30 Days, #30 TAB Prov:IVETH NICE MD 09/23/22 Sucralfate (CARAFATE SUSP) 1 Gm/10 Ml Ss, 1 GM PO QIDACHS for 30 Days, #120 ML Prov:IVETH NICE MD 09/23/22 Pantoprazole Sodium Sesquihydr (Protonix) 40 Mg Tab, 40 MG PO DAILY for 30 Days, #30 TAB 2 Refills Prov:IVETH NICE MD 09/23/22 Reported Medications No Reported Medication (NO REPORTED MEDICATION) Ea, 0 CO, EA PATIENT HAS NO REPORTED MEDICATIONS 09/22/22 Information Source: Patient Mode of Arrival: Wheelchair Severity: Moderate Timing: Hours Duration: Since onset Prehospital treatment: None Location: Chest (R) Radiation: No Radiation Quality: Aching Onset: At Rest Cardiac Risk Factors: Other (Right-sided chest trauma) PE Risk Factors: None Associated Signs and Symptoms: Other (headache ) Past Medical History PAST MEDICAL HISTORY: Anxiety, HTN Surgical History: Denies all surgeries Family History Family History: Reviewed,noncontributory to illness, Unknown Social History Smoker: Cigarettes, Less Than 1 Pack/Day Alcohol: Occasionally Drugs: Marijuana, Methamphetamine Lives In: Homeless Constitutional: denies: chills, diaphoresis, fatigue, fever, malaise, sweats, weakness, others EENTM: denies: blurred vision, double vision, ear bleeding, ear discharge, ear drainage, ear pain, ear ringing, eye pain, eye redness, hearing loss, mouth pain, mouth swelling, nasal discharge, nose bleeding, nose congestion, nose pain, photophobia, tearing, throat pain, throat swelling, voice changes, others Respiratory: denies: cough, hemoptysis, orthopnea, SOB at rest, shortness of breath, SOB with excertion, stridor, wheezing, others Cardiovascular: reports: chest pain; denies: dizzy spells, diaphoresis, Dyspnea on exertion, edema, irregular heart beat, left arm pain, lightheadedness, palpitations, PND, syncope, others Gastrointestinal: denies: abdomen distended, abdominal pain, blood streaked bowels, constipated, diarrhea, dysphagia, difficulty swallowing, hematemesis, melena, nausea, poor appetite, poor fluid intake, rectal bleeding, rectal pain, vomiting, others Genitourinary: denies: burning, dysuria, flank pain, frequency, hematuria, incontinence, penile discharge, penile sore, pain, testicle pain, testicle swelling, urgency, others Neurological: reports: headache; denies: dizziness, fainting, left sided numbness, left sided weakness, numbness, paresthesia, pre-existing deficit, r ight sided numbness, right sided weakness, seizure, speech problems, tingling, tremors, weakness, others Musculoskeletal: denies: back pain, gout, joint pain, joint swelling, muscle pain, muscle stiffness, neck pain, others Integumetry: denies: bruises, change in color, change in hair/nails, dryness, laceration, lesions, lumps, rash, wounds, others Allergic/Immunocompromised: denies: Difficulty Healing, Frequent Infections, Hives, Itching, others Hematologic/Lymphatic: denies: anemia, blood clots, easy bleeding, easy bruising, swollen glands, others Endocrine: denies: excessive hunger, excessive sweating, excessive thirst, excessive urination, flushing, intolerance to cold, intolerance to heat, unexplained weight gain, unexplained weight loss, others Psychiatric: reports: anxiety; denies: bipolar disorder, depression, hopeless, panic disorder, schizophrenia, sleepless, suicidal, others All Other Systems: Reviewed and Negative Physical Exam General Appearance: Moderate Distress (Moderate distress due to right-sided chest pain concerns.), Normal HEENT: Normal ENT Inspection, Pharynx Normal, TMs Normal Neck: Full Range of Motion, Non-Tender, Normal, Normal Inspection Respiratory: Lungs Clear, No Accessory Muscle Use, No Respiratory Distress, No rmal Breath Sounds, Other (Right-sided chest was tender to palpation but unremarkable for any acute findings. No edema or ecchymosis noted. No crepitus.) Cardiovascular: No Edema, No JVD, No Murmur, No Gallop, Normal Peripheral Puls es, Regular Rate/Rhythm Breast Exam: Deferred Gastrointestinal: No Organomegaly, Non Tender, No Pulsatile Mass, Normal Bowel Sounds, Soft Genitalia: Deferred Pelvic: Deferred Rectal: Deferred Extremities: No calf tenderness, Normal capillary refill Musculoskeletal : Apperance: Normal Neurologic: Alert, No Motor Deficits, Normal Affect, Normal Mood, No Sensory Deficits Cerebellar Function: NOT DONE Reflexes: NOT DONE Skin: Dry, Normal Color, Warm Lymphatic: No Adenopathy Was a procedure done? Was a procedure done?: No CP Differential Dx Differential Diagnosis: Angina, Anxiety / Panic Attack Differential Diagnosis: HTN Essential Differential Diagnosis: Chest Wall Pain, Gastritis, Pneumonia, Other (Rib fracture) X-Ray, Labs, Meds, VS Vital Signs Date Time Temp Pulse Resp B/P (MAP) Pulse Ox O2 Delivery O2 Flow Rate FiO2 10/27/24 22:56 93 19 100 Room Air 10/27/24 22:56 98.4 93 19 142/80 (100) 100 98.4 10/27/24 20:44 97.7 100 16 151/96 100 97.7 Current Medications Medications (Trade) Dose Ordered Sig/Edwardo Route Start Time Stop Time Status Last Admin Lorazepam (Ativan Tablet) 0.5 mg ONCE ONCE PO 10/27/24 21:15 10/27/24 21:16 DC 10/27/24 22:50 Ketorolac Tromethamine (Toradol Injection) 30 mg ONCE ONCE IM 10/27/24 21:15 10/27/24 21:16 DC 10/27/24 22:51 [place] [address] Ph: [phone] DIAGNOSTIC IMAGING Diagnostic Imaging Report : [id number] Signed PATIENT: CECIL REYES ACCT: [id number] UNIT: [id number] : 1975 LOC: ER ROOM / BED: / AGE / SEX: 48 / M ADM STATUS: REG ER SERVICE 09 ORDERING PHYSICIAN: CECILIA CARSON PAC PROCEDURE(s): CXRP - CHEST PORTABLE REASON: Chest pain ORDER NUMBER(s): [id number], ACCESSION NUMBER(s): [id number] CHEST RADIOGRAPH Indication: Chest pain Technique: 1 view Comparison: XY CHEST XRAY 1 VIEW on DOS: 02/03/24, XY CHEST XRAY 1 VIEW on DOS: 04/10/23 FINDINGS: Lines and Tubes: None Lungs/Pleura: No focal consolidation, pleural effusion or pneumothorax. Cardiomediastinum: Unremarkable. Other: No acute osseous abnormality. IMPRESSION: 1. No acute cardiopulmonary abnormality. X-Ray, Labs, Meds, VS Comment All studies performed the ED were evaluated by me personally. Imaging studies of the chest were unremarkable for any fractures. Patient seems to have a chest wall contusion. Advise utilizing pain medication as needed as well as anxiety medication as needed. Patient should follow up with his primary care provider for discussions related to today's visit as well as possible mental health referral to deal with the anxiety issues. Images Reviewed?: Images reviewed and evaluated by me Time of 1ST Reevaluation: 00:29 Reevaluation 1ST: Improved Consultation: PCP, Psychiatry Patient Education/Counseling: Diagnosis, Treatment Family Education/Counseling: Diagnosis, Treatment, No Family Present Medical Screening: No EMC Exist At This Time SEPSIS Sepsis Screen Date sepsis recognized/suspect: Oct 27, 2024 Time Sepsis recognized/suspect: 2043 Recent Procedure: No On Antibiotic Therapy: No Respiratory Rate >20: No Heart Rate >90: Yes Temp<36 C (96.8 F) or >38.3 C: No SBP <90 or MAP <65 mmHG: No New Acute Mental Status Change: No Is the patient on CPAP, BIPAP,: No Physician Orders Electrocardigram (10/27/24 21:10) Chest Portable (10/27/24 21:10) Vital Signs Date Time Temp Pulse Resp B/P (MAP) Pulse Ox O2 Delivery O2 Flow Rate FiO2 10/27/24 22:56 93 19 100 Room Air 10/27/24 22:56 98.4 93 19 142/80 (100) 100 98.4 10/27/24 20:44 97.7 100 16 151/96 100 97.7 Medications Medications Dose Ordered Sig/Edwardo Route Start Time Stop Time Status Last Admin Dose Admin Ketorolac Tromethamine 30 mg ONCE ONCE IM 10/27/24 21:15 10/27/24 21:16 DC 10/27/24 22:51 Lorazepam 0.5 mg ONCE ONCE PO 10/27/24 21:15 10/27/24 21:16 DC 10/27/24 22:50 Departure 1 Departure Time of Disposition: 00:30 Impression: Primary Impression: Anxiety Additional Impression: Chest wall contusion Disposition: HOME / SELF CARE / HOMELESS Condition: Stable Additional Instructions: Advised patient utilize pain medication as needed for symptomatic relief as well as ice therapy. Additional medication as needed. Patient should follow up with the primary care provider for discussions related to today's visit including a mental health referral. e-Prescriptions Acetaminophen (Acetaminophen) 500 Mg Tab 500 MG PO Q4HP PRN, #30 TAB Prov: CECILIA CARSON PAC 10/28/24 Ibuprofen Micronized (Ibuprofen) 800 Mg Tab 800 MG PO Q8HP PRN, #20 TAB Prov: CECILIA CARSON PAC 10/28/24 Lorazepam (ATIVAN TABLET) 0.5 Mg Tb 1 TAB PO TID, #10 TAB Prov: CECILIA CARSON PAC 10/28/24 Discharged With: Self, Friend Critical Care Note Critical Care Time?: No Stability Stability form required: No Heart Score Heart Score: Heart Score Response (Comments) Value History Slightly Suspicious 0 EKG N/A 0 Age 45-64 1 Risk Factors No known risk factors 0 Troponin N/A 0 Total 1 I personally scribed for CECILIA CARSON PAC ([email or web address]) on 10/27/24 at 21:18. Electronically submitted by Gretchen Martin ([employer]). I personally scribed for CECILIA CARSON PAC ([email or web address]) on 10/27/24 at 22:01. Electronically submitted by Gretchen Martin ([employer]). I personally scribed for CECILIA CARSON PAC ([email or web address]) on 10/27/24 at 22:02. Electronically submitted by Gretchen Martin ([employer]). CECILIA CARSON PAC Oct 27, 2024 21:18
--- NOTE | 2024-10-27 21:57 | DVH ---
CHEST RADIOGRAPH Indication: Chest pain Technique: 1 view Comparison: XY CHEST XRAY 1 VIEW on DOS: 02/03/24, XY CHEST XRAY 1 VIEW on DOS: 04/10/23 FINDINGS: Lines and Tubes: None Lungs/Pleura: No focal consolidation, pleural effusion or pneumothorax. Cardiomediastinum: Unremarkable. Other: No acute osseous abnormality. IMPRESSION: 1. No acute cardiopulmonary abnormality.
[2024-10-27] MEDS: LORazepam 0.5 MG TAB PO ONE (22:50)
[2024-10-27] MEDS: KETOROLAC TROMETH 60MG/2ML VIAL IM ONE (22:51)
[2024-10-27 22:56] VITALS: BP 142/80; PULSE 93; RESP 19; TEMP 98.4; O2SAT 100
[2024-10-28] MEDS ORDERED: ACET500T58 PO (00:32)
== END 2024-10-28 00:33 | disposition left against medical advice (07) ==
LOC: ER 20:46
DX: S20.211A Contusion of right front wall of thorax, initial encounter (principal); F41.9 Anxiety disorder, unspecified; I10 Essential (primary) hypertension; F17.210 Nicotine dependence, cigarettes, uncomplicated; Z76.0 Encounter for issue of repeat prescription; Z79.899 Other long term (current) drug therapy; X58.XXXA Exposure to other specified factors, initial encounter; Y93.89 Activity, other specified; Y92.89 Other specified places as the place of occurrence of the external cause; Y99.8 Other external cause status
CPT/HCPCS: 71045

== ENCOUNTER 2024-11-14 01:35 | Emergency (ER) | payer OTHER ==
[~2024-11-14] VITALS: Ht 182.9 cm; Wt 86.0 kg
[~2024-11-14 01:35] MED LIST changes: +ACET500T58 PO
--- NOTE | 2024-11-14 01:55 | ED.PDOC ---
History of Present Illness(SKN HPI Comments Patient brought in by EMS. Patient complaining of a insect bite to the left forearm. 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 By laquita approximate 45 minutes ago. Called EMS due to the pain and burning. No known allergies to anything else. Chief Complaint: Insect Bite Time Seen by MD: 01:47 Primary Care Provider: ANTONIA History of Present Illness: Nurses Notes Allergies: Coded Allergies: NO KNOWN ALLERGIES (Unverified , 09/20/22) Home Meds Active Scripts Acetaminophen (Acetaminophen) 500 Mg Tab, 500 MG PO Q4HP PRN, #30 TAB Prov:CECILIA CARSON PAC 10/28/24 Ibuprofen Micronized (Ibuprofen) 800 Mg Tab, 800 MG PO Q8HP PRN, #20 TAB Prov:CECILIA CARSON PAC 10/28/24 Lorazepam (ATIVAN TABLET) 0.5 Mg Tb, 1 TAB PO TID, #10 TAB Prov:CECILIA CARSON PAC 10/28/24 Ibuprofen Micronized (Ibuprofen) 800 Mg Tab, 800 MG PO Q8HP PRN, #20 TAB Prov:CECILIA CARSON PAC 09/29/24 Lorazepam (ATIVAN TABLET) 0.5 Mg Tb, 1 TAB PO TID, #10 TAB Prov:CECILIA CARSON PAC 09/08/24 Ibuprofen Micronized (MOTRIN TABLET) 600 Mg Tb, 600 MG PO TID PRN for 3 Days, #9 TAB *Black box warning-NSAIDS can increase risk of [place] & hypertension, GI irritation, ulceration, bleed, perferation. Do not use post cardiac surgery. Use short duration/lowest effective dose. Prov:MATEUS THAKUR MD 07/07/24 Hydrocodone-Acetaminophen (Hydrocodone Bitartrate/AC 5-325 mg) 1 Tab Tab, 1 TAB PO Q6HP PRN, #10 TAB Prov:CECILIA CARSON 07/06/24 Ibuprofen Micronized (Ibuprofen) 800 Mg Tab, 800 MG PO Q8HP PRN, #20 TAB Prov:CECILIA CARSON [facility] 07/06/24 Hydroxyzine Pamoate (Hydroxyzine Pamoate) 50 Mg Cap, 1 CAP PO Q6HPRN, #16 CAP 0 Refills Prov:SARY CARRION 04/18/24 Hydroxyzine Hcl (Hydroxyzine Hcl) 25 Mg Tab, 1 TAB PO TID, #30 TAB Prov:PETER BULLOCK CLASSIFICATION INSPECTOR 02/19/24 Acetaminophen (Tylenol Extra Strength Fo) 500 Mg Tab, 1000 MG PO BID, #30 TAB Prov:MARY MONTES 02/03/24 Promethazine-Dm (Promethazine Dm 6.25-15 mg/5Ml) 1 Delmy Delmy, 5 ML PO TID, #150 ML Prov:MARY MONTES 02/03/24 Cephalexin Monohydrate (Cephalexin) 500 Mg Cap, 1 CAP PO QID, #28 CAP Prov:MARY MONTES 02/03/24 Lorazepam (ATIVAN TABLET) 0.5 Mg Tb, 1 TAB PO BID, #60 TAB Prov:ANN MARIE APODACA MD 12/26/23 Propranolol HCl (Propranolol Hydrochloride) 10 Mg Tab, 1 TAB PO BID PRN for 5 Days, #10 TAB Take 1 tablet by mouth twice daily as needed for anxiety or panic attacks Prov:CAROLINA NAVA 12/23/23 Acetaminophen (Acetaminophen) 325 Mg Tab, 325 MG PO QIDP for 30 Days, #120 TAB 0 Refills Prov:WILLEM ORTEGA NP 06/08/23 Diclofenac Sodium (Topical) (Voltaren Arthritis Pain) 1 % Gel, 1 % EX BIDPRN PRN for 30 Days, #90 GRAMS 0 Refills Prov:WILLEM ORTEGA NP 06/08/23 Meloxicam (Meloxicam) 7.5 Mg Tab, 1 TAB PO DAILY for 30 Days, #30 TAB 0 Refills Prov:WILLEM ORTEGA NP 06/08/23 Multiple Vitamins W/ Minerals (Mvi W/ Minerals Tab) 1 Tab Tb, 1 TAB PO DAILY for 30 Days, #30 TAB Prov:IVETH NICE MD 09/23/22 Sucralfate (CARAFATE SUSP) 1 Gm/10 Ml Ss, 1 GM PO QIDACHS for 30 Days, #120 ML Prov:IVETH NICE MD 09/23/22 Pantoprazole Sodium Sesquihydr (Protonix) 40 Mg Tab, 40 MG PO DAILY for 30 Days, #30 TAB 2 Refills Prov:IVETH NICE MD 09/23/22 Reported Medications No Reported Medication (NO REPORTED MEDICATION) Ea, 0 CO, EA PATIENT HAS NO REPORTED MEDICATIONS 09/22/22 Information Source: Patient Past Medical History PAST MEDICAL HISTORY: Anxiety, HTN Surgical History: Denies all surgeries Family History Family History: Reviewed,noncontributory to illness, Unknown Social History Smoker: Cigarettes, Less Than 1 Pack/Day Alcohol: Occasionally Drugs: Marijuana, Methamphetamine Lives In: Homeless Constitutional: denies: chills, diaphoresis, fatigue, fever, malaise, sweats, weakness, others EENTM: denies: blurred vision, double vision, ear bleeding, ear discharge, ear drainage, ear pain, ear ringing, eye pain, eye redness, hearing loss, mouth pain, mouth swelling, nasal discharge, nose bleeding, nose congestion, nose pain, photophobia, tearing, throat pain, throat swelling, voice changes, others Respiratory: denies: cough, hemoptysis, orthopnea, SOB at rest, shortness of breath, SOB with excertion, stridor, wheezing, others Cardiovascular: denies: chest pain, dizzy spells, diaphoresis, Dyspnea on exertion, edema, irregular heart beat, left arm pain, lightheadedness, palpitations, PND, syncope, others Gastrointestinal: denies: abdomen distended, abdominal pain, blood streaked bowels, constipated, diarrhea, dysphagia, difficulty swallowing, hematemesis, melena, nausea, poor appetite, poor fluid intake, rectal bleeding, rectal pain, vomiting, others Genitourinary: denies: burning, dysuria, flank pain, frequency, hematuria, incontinence, penile discharge, penile sore, pain, testicle pain, testicle swelling, urgency, others Neurological: denies: dizziness, fainting, headache, left sided numbness, left sided weakness, numbness, paresthesia, pre-existing deficit, right sided numbness, right sided weakness, seizure, speech problems, tingling, tremors, weakness, others Musculoskeletal: denies: back pain, gout, joint pain, joint swelling, muscle pain, muscle stiffness, neck pain, others Integumetry: reports: wounds Physical Exam General Appearance: No Apparent Distress, Normal HEENT: Normal ENT Inspection, Pharynx Normal, TMs Normal Neck: Full Range of Motion, Non-Tender, Normal, Normal Inspection Respiratory: Chest Non-Tender, Lungs Clear, No Accessory Muscle Use, No Respiratory Distress, Normal Breath Sounds Cardiovascular: No Edema, No JVD, No Murmur, No Gallop, Normal Peripheral Pulses, Regular Rate/Rhythm Breast Exam: Deferred Gastrointestinal: No Organomegaly, Non Tender, No Pulsatile Mass, Normal Bowel Sounds, Soft Genitalia: Deferred Pelvic: Deferred Rectal: Deferred Extremities: No calf tenderness, Normal capillary refill, Normal inspection, Normal range of motion, Non-tender, No pedal edema Musculoskeletal : Apperance: Normal Neurologic: Alert, dehydration plant operator II-XII nml as Tested, No Motor Deficits, Normal Affect, Normal Mood, No Sensory Deficits Cerebellar Function: Normal Reflexes: Normal Skin: Dry, Wounds (Minimal of the left forearm there is small welts that he is developing approximate 1 cm round. Surrounding area is mildly erythemic. No streaking. Injury/wound is consistent with possible sting.) Lymphatic: No Adenopathy Was a procedure done? Was a procedure done?: No Differential Diagnosis (INTG) Differential Diagnosis: Cellulitis, Insect Envenomation X-Ray, Labs, Meds, VS Comment Imaging was reviewed by this provider, there is no obvious pathological or acute disease process. Pending radiology review Labs were reviewed by this provider, no abnormalities Vital signs reviewed by this provider, clinically stable Time of 1ST Reevaluation: 01:54 Reevaluation 1ST: Improved Patient Education/Counseling: Diagnosis, Treatment, Need For Follow Up (Follow up in two days for wound recheck) Family Education/Counseling: Diagnosis, Treatment SEPSIS Sepsis Screen Physician Orders Methylprednisolone Sod Succ (Solu Medrol (11/14/24 02:00) Diphenhdramine Injection (Benadryl Injec (11/14/24 02:00) Departure 1 Departure Time of Disposition: 01:52 Impression: Primary Impression: Insect bite Qualified Codes: S50.862A - Insect bite (nonvenomous) of left forearm, initial encounter; W57.XXXA - Bitten or stung by nonvenomous insect and other nonvenomous arthropods, initial encounter Disposition: 01 HOME / SELF CARE / HOMELESS Condition: Fair Discharged With: Self Critical Care Note Critical Care Time?: No Stability Stability form required: No Heart Score Heart Score: Heart Score Response (Comments) Value History N/A 0 EKG N/A 0 Age N/A 0 Risk Factors N/A 0 Troponin N/A 0 Total 0 PETER BULLOCK Nov 14, 2024 01:55
[2024-11-14] MEDS ORDERED: methylPREDNISolone SOD SUCC 125 MG/2 ML VL IM ONE (02:00)
[2024-11-14] MEDS: diphenhdrAMINE HCL 50 MG/1 ML VL IM ONE (02:20)
[2024-11-14 02:27] VITALS: BP 144/82; PULSE 79; RESP 18; TEMP 98.2; O2SAT 99
[2024-11-14] MEDS: KETOROLAC TROMETH 30 MG/ML 1ML VIAL IV ONE (02:28)
[2024-11-14] MEDS: methylPREDNISolone SOD SUCC 125 MG/2 ML VL IV ONE (02:28)
[2024-11-14] MEDS ORDERED: IBUP-1456 PO (07:39)
== END 2024-11-14 03:30 | disposition home or self-care (01) ==
LOC: ER 01:35 → EDBD 01:35 → ER 03:08
DX: S50.862A Insect bite (nonvenomous) of left forearm, initial encounter (principal); I10 Essential (primary) hypertension; F17.210 Nicotine dependence, cigarettes, uncomplicated; Z79.899 Other long term (current) drug therapy; Z59.00 Homelessness unspecified; W57.XXXA Bitten or stung by nonvenomous insect and other nonvenomous arthropods, initial encounter; Y93.89 Activity, other specified; Y92.89 Other specified places as the place of occurrence of the external cause; Y99.8 Other external cause status
CPT/HCPCS: 82947; 96372; 96374; 96375; 99284; J1200; J1885; J2919

== ENCOUNTER 2024-11-14 05:22 | Emergency (ER) | payer OTHER ==
[2024-11-14] MEDS: KETOROLAC TROMETH 60MG/2ML VIAL IM ONE (06:45)
--- NOTE | 2024-11-14 06:55 | ED.PDOC ---
History of Present Illness HPI Comments A 48 YEAR OLD MALE PRESENTS TO THE ED WITH COMPLAINT OF UE/INSECT BITE. PATIENT REPORTS ON HAVING PAIN, POSSIBLY DUE FROM AN INSECT BITE TO HIS LEFT FOREARM FOR THE PAST HOUR. PATIENT NOTES ON HAVING CHEST PAIN AT THE MOMENT. PATIENT IS A POOR HISTORIAN. PATIENT DENIES FEVER, CHILLS, SHORTNESS OF BREATH, CHEST PAIN, ABDOMINAL PAIN, NAUSEA, VOMITING, HEADACHE, OR OTHER COMPLAINTS. NO OTHER SYMPTOMS OR MODIFYING FACTORS AT THIS TIME. PATIENT IS ALERT, ORIENTED X 4, AND HAS STEADY GAIT. Chief Complaint: Insect Bite Time Seen by MD: 06:50 Primary Care Provider: ANTONIA Reviewed Notes: Nurses Notes, Medications, Allergies Allergies: Coded Allergies: NO KNOWN ALLERGIES (Unverified , 09/20/22) Home Meds Active Scripts Ibuprofen (Ibuprofen) 800 Mg Tab, 1 TAB PO TID, #30 TAB Prov:MARY MONTES 11/14/24 Cephalexin Monohydrate (Cephalexin) 500 Mg Cap, 1 CAP PO QID, #28 CAP Prov:MARY MONTES 11/14/24 Acetaminophen (Acetaminophen) 500 Mg Tab, 500 MG PO Q4HP PRN, #30 TAB Prov:CECILIA CARSON PAC 10/28/24 Ibuprofen Micronized (Ibuprofen) 800 Mg Tab, 800 MG PO Q8HP PRN, #20 TAB Prov:CECILIA CARSON PAC 10/28/24 Lorazepam (ATIVAN TABLET) 0.5 Mg Tb, 1 TAB PO TID, #10 TAB Prov:CECILIA CARSON PAC 25 Ibuprofen Micronized (Ibuprofen) 800 Mg Tab, 800 MG PO Q8HP PRN, #20 TAB Prov:CECILIA CARSON PAC 25 Lorazepam (ATIVAN TABLET) 0.5 Mg Tb, 1 TAB PO TID, #10 TAB Prov:CECILIA CARSON PAC 25 Ibuprofen Micronized (MOTRIN TABLET) 600 Mg Tb, 600 MG PO TID PRN for 3 Days, #9 TAB *Black box warning-NSAIDS can increase risk of CT & hypertension, GI irritation, ulceration, bleed, perferation. Do not use post cardiac surgery. Use short duration/lowest effective dose. Prov:MATEUS THAKUR MD 07/07/24 Hydrocodone-Acetaminophen (Hydrocodone Bitartrate/AC 5-325 mg) 1 Tab Tab, 1 TAB PO Q6HP PRN, #10 TAB Prov:ALLICECILIA PAC 07/06/24 Ibuprofen Micronized (Ibuprofen) 800 Mg Tab, 800 MG PO Q8HP PRN, #20 TAB Prov:ALLICECILIA PAC 07/06/24 Hydroxyzine Pamoate (Hydroxyzine Pamoate) 50 Mg Cap, 1 CAP PO Q6HPRN, #16 CAP 0 Refills Prov:SARY CARRION 04/18/24 Hydroxyzine Hcl (Hydroxyzine Hcl) 25 Mg Tab, 1 TAB PO TID, #30 TAB Prov:PETER BULLOCK ATHLETIC COORDINATOR 02/19/24 Acetaminophen (Tylenol Extra Strength Fo) 500 Mg Tab, 1000 MG PO BID, #30 TAB Prov:MARY MONTES 02/03/24 Promethazine-Dm (Promethazine Dm 6.25-15 mg/5Ml) 1 Delmy Delmy, 5 ML PO TID, #150 ML Prov:MARY MONTES 02/03/24 Cephalexin Monohydrate (Cephalexin) 500 Mg Cap, 1 CAP PO QID, #28 CAP Prov:MARY MONTES 02/03/24 Lorazepam (ATIVAN TABLET) 0.5 Mg Tb, 1 TAB PO BID, #60 TAB Prov:ANN MARIE APODACA MD 12/26/23 Propranolol HCl (Propranolol Hydrochloride) 10 Mg Tab, 1 TAB PO BID PRN for 5 Days, #10 TAB Take 1 tablet by mouth twice daily as needed for anxiety or panic attacks Prov:CAROLINA NAVAP 12/23/23 Acetaminophen (Acetaminophen) 325 Mg Tab, 325 MG PO QIDP for 30 Days, #120 TAB 0 Refills Prov:WILLEM ORTEGA NP 06/08/23 Diclofenac Sodium (Topical) (Voltaren Arthritis Pain) 1 % Gel, 1 % EX BIDPRN PRN for 30 Days, #90 GRAMS 0 Refills Prov:WILLEM ORTEGA NP 06/08/23 Meloxicam (Meloxicam) 7.5 Mg Tab, 1 TAB PO DAILY for 30 Days, #30 TAB 0 Refills Prov:WILLEM ORTEGA NP 06/08/23 Multiple Vitamins W/ Minerals (Mvi W/ Minerals Tab) 1 Tab Tb, 1 TAB PO DAILY for 30 Days, #30 TAB Prov:IVETH NICE MD 09/23/22 Sucralfate (CARAFATE SUSP) 1 Gm/10 Ml Ss, 1 GM PO QIDACHS for 30 Days, #120 ML Prov:IVETH NICE MD 09/23/22 Pantoprazole Sodium Sesquihydr (Protonix) 40 Mg Tab, 40 MG PO DAILY for 30 Days, #30 TAB 2 Refills Prov:IVETH NICE MD 09/23/22 Reported Medications No Reported Medication (NO REPORTED MEDICATION) Ea, 0 CO, EA PATIENT HAS NO REPORTED MEDICATIONS 09/22/22 Information Source: Patient Mode of Arrival: Ambulatory Severity: Mild, Moderate Timing: Minutes Duration: Since onset, Minutes Prehospital treatment: None Medication Refill: For: Other (LEFT FOREARM INSECT BITE ) Past Medical History PAST MEDICAL HISTORY: Anxiety, HTN Surgical History: Denies all surgeries Family History Family History: Reviewed,noncontributory to illness, Unknown Social History Smoker: Cigarettes, Less Than 1 Pack/Day Alcohol: Occasionally Drugs: Marijuana, Methamphetamine Lives In: Homeless Constitutional: reports: others (ANXIETY ); denies: chills, diaphoresis, fatigue, fever, malaise, sweats, weakness EENTM: denies: blurred vision, double vision, ear bleeding, ear discharge, ear drainage, ear pain, ear ringing, eye pain, eye redness, hearing loss, mouth pain, mouth swelling, nasal discharge, nose bleeding, nose congestion, nose pain, photophobia, tearing, throat pain, throat swelling, voice changes, others Respiratory: denies: cough, hemoptysis, orthopnea, SOB at rest, shortness of breath, SOB with excertion, stridor, wheezing, others Cardiovascular: denies: chest pain, dizzy spells, diaphoresis, Dyspnea on ex ertion, edema, irregular heart beat, left arm pain, lightheadedness, palpitations, PND, syncope, others Gastrointestinal: denies: abdomen distended, abdominal pain, blood streaked bowels, constipated, diarrhea, dysphagia, difficulty swallowing, hematemesis, melena, nausea, poor appetite, poor fluid intake, rectal bleeding, rectal pain, vomiting, others Genitourinary: denies: burning, dysuria, flank pain, frequency, hematuria, incontinence, penile discharge, penile sore, pain, testicle pain, testicle swelling, urgency, others Neurological: denies: dizziness, fainting, headache, left sided numbness, left sided weakness, numbness, paresthesia, pre-existing deficit, right sided numbness, right sided weakness, seizure, speech problems, tingling, tremors, weakness, others Musculoskeletal: denies: back pain, gout, joint pain, joint swelling, muscle pain, muscle stiffness, neck pain, others Integumetry: reports: wounds (INSECT BITE); denies: bruises, change in color, change in hair/nails, dryness, laceration, lesions, lumps, rash, others Allergic/Immunocompromised: denies: Difficulty Healing, Frequent Infections, Hives, Itching, others Hematologic/Lymphatic: denies: anemia, blood clots, easy bleeding, easy bruising, swollen glands, others Endocrine: denies: excessive hunger, excessive sweating, excessive thirst, excessive urination, flushing, intolerance to cold, intolerance to heat, unexplained weight gain, unexplained weight loss, others Psychiatric: denies: anxiety, bipolar disorder, depression, hopeless, panic disorder, schizophrenia, sleepless, suicidal, others All Other Systems: Reviewed and Negative Physical Exam General Appearance: Mild Distress, Normal, Other (ANXIETY ) HEENT: Normal ENT Inspection, PERRL/EOMI, Pharynx Normal, TMs Normal Neck: Full Range of Motion, Non-Tender, Normal, Normal Inspection Respiratory: Chest Non-Tender, Lungs Clear, No Accessory Muscle Use, No Respiratory Distress, Normal Breath Sounds Cardiovascular: No Edema, No JVD, No Murmur, No Gallop, Normal Peripheral Pulses, Regular Rate/Rhythm Breast Exam: Deferred Gastrointestinal: No Organomegaly, Non Tender, No Pulsatile Mass, Normal Bowel Sounds, Soft Genitalia: Deferred Pelvic: Deferred Rectal: Deferred Extremities: No calf tenderness, Normal capillary refill, Normal range of motion, No pedal edema, Tender (LEFT FOREARM WITH MILD REDNESS, NO OPEN WOUND AND SWELLING SEEN. ) Musculoskeletal : Apperance: Normal Neurologic: Alert, manager of case management II-XII nml as Tested, No Motor Deficits, Normal Affect, Normal Mood, No Sensory Deficits Cerebellar Function: Normal Reflexes: Normal Skin: Dry, Normal Color, Warm, Wounds (A SMALL RED BUMP ON LEFT VOLAR FOREARM, NO OPEN WOUND AND SWELLING SEEN. ) Peripheral Pulses: 2+ carotid (R), 2+ carotid (L), 2+ Radial (R), 2+ Radial (L) Lymphatic: No Adenopathy Was a procedure done? Was a procedure done?: No Differential Dx Considerations may include: INSECT BITE OF LEFT FOREARM X-Ray, Labs, Meds, VS Vital Signs Date Time Temp Pulse Resp B/P (MAP) Pulse Ox O2 Delivery O2 Flow Rate FiO2 11/14/24 05:24 97.1 67 20 183/102 98 97.1 Current Medications Medications (Trade) Dose Ordered Sig/Edwardo Route Start Time Stop Time Status Last Admin Ketorolac Tromethamine (Toradol Injection) 60 mg ONCE ONCE IM 11/14/24 06:45 11/14/24 06:46 DC 11/14/24 06:45 X-Ray, Labs, Meds, VS Comment EXTERNAL MEDICAL RECORDS REVIEWED: [NONE] INDEPENDENT HISTORIANS: [NONE] SOCIAL DETERMINANTS OF HEALTH: [NONE] LABS ORDERED: NONE REVIEWED AND INTERPRETED RESULTS: NONE IMAGING ORDERED: NONE TREATMENTS ORDERED: TORADOL 60MG IM PROCEDURES PERFORMED: NONE CRITICAL CARE TIME: NONE I HAVE DISCUSSED THE PATIENT WITH THE ATTENDING PHYSICIAN DR. AGUIRRE AND HE AGREES WITH THE PATIENT'S PLAN OF CARE AND DISPOSITION. BASED ON HISTORY OF PRESENT ILLNESS, AND PHYSICAL EXAM, PATIENT WILL BE DISCHARGED HOME. DISCUSSED PLAN FOR DISCHARGE HOME WITH RX [KEFLEX AND MOTRIN ]. MEDICATION WARNINGS GIVEN. SHARED DECISION MAKING: DISCUSSED WITH PATIENT THAT THEIR WORKUP WAS NORMAL. PATIENT INSTRUCTED TO FOLLOW UP WITH PRIMARY CARE PROVIDER IN 1-2 DAYS FOR RE- EVALUATION OF SYMPTOMS. PATIENT VERBALIZES UNDERSTANDING TO RETURN TO ED FOR NEW OR WORSENING SYMPTOMS OR IF FOLLOW UP WITH PCP CANNOT BE OBTAINED. PATIENT FEELS COMFORTABLE GOING HOME AT THIS TIME. ALL QUESTIONS ADDRESSED AT TIME OF DISCHARGE. Time of 1ST Reevaluation: 07:43 Reevaluation 1ST: Improved Patient Education/Counseling: Diagnosis, Treatment, Prognosis Family Education/Counseling: Diagnosis, Treatment, No Family Present Medical Screening: No EMC Exist At This Time SEPSIS Sepsis Screen Date sepsis recognized/suspect: Nov 14, 2024 Time Sepsis recognized/suspect: 524 Recent Procedure: No On Antibiotic Therapy: No Respiratory Rate >20: No Heart Rate >90: No Temp<36 C (96.8 F) or >38.3 C: No SBP <90 or MAP <65 mmHG: No New Acute Mental Status Change: No Is the patient on CPAP, BIPAP,: No Vital Signs Date Time Temp Pulse Resp B/P (MAP) Pulse Ox O2 Delivery O2 Flow Rate FiO2 11/14/24 05:24 97.1 67 20 183/102 98 97.1 Medications Medications Dose Ordered Sig/Edwardo Route Start Time Stop Time Status Last Admin Dose Admin Ketorolac Tromethamine 60 mg ONCE ONCE IM 11/14/24 06:45 11/14/24 06:46 DC 11/14/24 06:45 Departure 1 Departure Time of Disposition: 08:00 Impression: Primary Impression: Insect bite Qualified Codes: S40.862A - Insect bite (nonvenomous) of left upper arm, in itial encounter; W57.XXXA - Bitten or stung by nonvenomous insect and other nonvenomous arthropods, initial encounter Disposition: HOME / SELF CARE / HOMELESS Condition: Stable Additional Instructions: FOLLOW-UP WITH PCP IN 1 TO 2 DAYS. TAKE MEDICATIONS PRESCRIBED. RETURN TO ED FOR ANY NEW OR WORSENING SYMPTOMS. e-Prescriptions Ibuprofen (Ibuprofen) 800 Mg Tab 1 TAB PO TID, #30 TAB Prov: MARY MONTES 11/14/24 Cephalexin Monohydrate (Cephalexin) 500 Mg Cap 1 CAP PO QID, #28 CAP Prov: MARY MONTES 11/14/24 Discharged With: Self Critical Care Note Critical Care Time?: No Stability Stability form required: No I personally scribed for MARY MONTES ([email or web address]) on 11/14/24 at 06:55. Electronically submitted by Rolly Camilo ([email or web address]). MARY MONTES Nov 14, 2024 06:55
[2024-11-14] MEDS ORDERED: IBUP-1456 PO (07:39)
[2024-11-14 07:47] VITALS: BP 143/84; PULSE 66; RESP 18; TEMP 97.3; O2SAT 100
== END 2024-11-14 07:52 | disposition home or self-care (01) ==
LOC: ER 05:22
DX: S50.862A Insect bite (nonvenomous) of left forearm, initial encounter (principal); F12.90 Cannabis use, unspecified, uncomplicated; F19.90 Other psychoactive substance use, unspecified, uncomplicated; F10.90 Alcohol use, unspecified, uncomplicated; F41.9 Anxiety disorder, unspecified; I10 Essential (primary) hypertension; F17.210 Nicotine dependence, cigarettes, uncomplicated; Z59.00 Homelessness unspecified; Z79.1 Long term (current) use of non-steroidal anti-inflammatories (NSAID); Z79.899 Other long term (current) drug therapy; W57.XXXA Bitten or stung by nonvenomous insect and other nonvenomous arthropods, initial encounter; Y93.89 Activity, other specified; Y92.89 Other specified places as the place of occurrence of the external cause; Y99.8 Other external cause status; Y90.9 Presence of alcohol in blood, level not specified
CPT/HCPCS: 96372; 99283; J1885

== ENCOUNTER 2024-12-06 19:51 | Emergency (ER) | payer OTHER ==
[~2024-12-06] VITALS: Ht 182.9 cm; Wt 84.0 kg
[~2024-12-06 19:51] MED LIST changes: +IBUP-1456 PO
[2024-12-06 20:21] VITALS: BP 155/84; PULSE 84; RESP 20; TEMP 97.8; O2SAT 99
[2024-12-06] MEDS: DICYCLOMINE HCL (10MG/ML) 2 ML AMPULE IM ONE (20:45)
[2024-12-06] MEDS: ONDANSETRON ODT 4 MG TAB PO ONE (20:45)
[2024-12-06 21:59] LABS: COVID19 ANTIGEN SOFIA FIA NEGATIVE (NEGATIVE)
[2024-12-06] MEDS ORDERED: ZOFR4T PO (22:21)
--- NOTE | 2024-12-06 22:21 | ED.PDOC ---
History of Present Illness HPI Comments This patient is a 49-year-old male who arrives the ED today for evaluation of abdominal pain with intermittent nausea and vomiting events for the past few days. Further dialogue with the patient reveals that I believe he is here for food and relief from the nighttime cold. After stating that he was having his symptoms, patient inquired about getting some food. Vital signs were stable. Chief Complaint: Headache Time Seen by MD: 20:11 Primary Care Provider: ANTONIA Reviewed Notes: Nurses Notes Allergies: Coded Allergies: NO KNOWN ALLERGIES (Unverified , 09/20/22) Home Meds Active Scripts Ibuprofen (Ibuprofen) 800 Mg Tab, 1 TAB PO TID, #30 TAB Prov:MARY MONTES 11/14/24 Cephalexin Monohydrate (Cephalexin) 500 Mg Cap, 1 CAP PO QID, #28 CAP Prov:MARY MONTES 11/14/24 Acetaminophen (Acetaminophen) 500 Mg Tab, 500 MG PO Q4HP PRN, #30 TAB Prov:CECILIA CARSON PAC 10/28/24 Ibuprofen Micronized (Ibuprofen) 800 Mg Tab, 800 MG PO Q8HP PRN, #20 TAB Prov:CECILIA CARSON PAC 10/28/24 Lorazepam (ATIVAN TABLET) 0.5 Mg Tb, 1 TAB PO TID, #10 TAB Prov:CECILIA CARSON PAC 10/28/24 Ibuprofen Micronized (Ibuprofen) 800 Mg Tab, 800 MG PO Q8HP PRN, #20 TAB Prov:CECILIA CARSON PAC 09/29/24 Lorazepam (ATIVAN TABLET) 0.5 Mg Tb, 1 TAB PO TID, #10 TAB Prov:CECILIA CARSON PAC 09/08/24 Ibuprofen Micronized (MOTRIN TABLET) 600 Mg Tb, 600 MG PO TID PRN for 3 Days, #9 TAB *Black box warning-NSAIDS can increase risk of NE & hypertension, GI irritation, ulceration, bleed, perferation. Do not use post cardiac surgery. Use short duration/lowest effective dose. Prov:MATEUS THAKUR MD 07/07/24 Hydrocodone-Acetaminophen (Hydrocodone Bitartrate/AC 5-325 mg) 1 Tab Tab, 1 TAB PO Q6HP PRN, #10 TAB Prov:CECILIA CARSON [facility] 07/06/24 Ibuprofen Micronized (Ibuprofen) 800 Mg Tab, 800 MG PO Q8HP PRN, #20 TAB Prov:CECILIA CARSON PAC 07/06/24 Hydroxyzine Pamoate (Hydroxyzine Pamoate) 50 Mg Cap, 1 CAP PO Q6HPRN, #16 CAP 0 Refills Prov:SARY CARRION 04/18/24 Hydroxyzine Hcl (Hydroxyzine Hcl) 25 Mg Tab, 1 TAB PO TID, #30 TAB Prov:PETER BULLOCK FERRYBOAT OPERATOR CABLE 02/19/24 Acetaminophen (Tylenol Extra Strength Fo) 500 Mg Tab, 1000 MG PO BID, #30 TAB Prov:MARY MONTES 02/03/24 Promethazine-Dm (Promethazine Dm 6.25-15 mg/5Ml) 1 Delmy Delmy, 5 ML PO TID, #150 ML Prov:MARY MONTES 02/03/24 Cephalexin Monohydrate (Cephalexin) 500 Mg Cap, 1 CAP PO QID, #28 CAP Prov:MARY MONTES 02/03/24 Lorazepam (ATIVAN TABLET) 0.5 Mg Tb, 1 TAB PO BID, #60 TAB Prov:ANN MARIE APODACA MD 12/26/23 Propranolol HCl (Propranolol Hydrochloride) 10 Mg Tab, 1 TAB PO BID PRN for 5 Days, #10 TAB Take 1 tablet by mouth twice daily as needed for anxiety or panic attacks Prov:CAROLINA NAVAP 12/23/23 Acetaminophen (Acetaminophen) 325 Mg Tab, 325 MG PO QIDP for 30 Days, #120 TAB 0 Refills Prov:WILLEM ORTEGA NP 06/08/23 Diclofenac Sodium (Topical) (Voltaren Arthritis Pain) 1 % Gel, 1 % EX BIDPRN PRN for 30 Days, #90 GRAMS 0 Refills Prov:WILLEM ORTEGA NP 06/08/23 Meloxicam (Meloxicam) 7.5 Mg Tab, 1 TAB PO DAILY for 30 Days, #30 TAB 0 Refills Prov:WILLEM ORTEGA NP 06/08/23 Multiple Vitamins W/ Minerals (Mvi W/ Minerals Tab) 1 Tab Tb, 1 TAB PO DAILY for 30 Days, #30 TAB Prov:IVETH NICE MD 09/23/22 Sucralfate (CARAFATE SUSP) 1 Gm/10 Ml Ss, 1 GM PO QIDACHS for 30 Days, #120 ML Prov:IVETH NICE MD 09/23/22 Pantoprazole Sodium Sesquihydr (Protonix) 40 Mg Tab, 40 MG PO DAILY for 30 Days, #30 TAB 2 Refills Prov:IVETH NICE MD 09/23/22 Reported Medications No Reported Medication (NO REPORTED MEDICATION) Ea, 0 CO, EA PATIENT HAS NO REPORTED MEDICATIONS 09/22/22 Information Source: Patient Mode of Arrival: Ambulatory Severity: Mild Timing: Days Duration: Since onset Prehospital treatment: None Past Medical History PAST MEDICAL HISTORY: Anxiety, HTN Surgical History: Denies all surgeries Family History Family History: Reviewed,noncontributory to illness, Unknown Social History Smoker: Cigarettes, Less Than 1 Pack/Day Alcohol: Occasionally Drugs: Marijuana, Methamphetamine Lives In: Homeless Constitutional: denies: chills, diaphoresis, fatigue, fever, malaise, sweats, weakness, others EENTM: denies: blurred vision, double vision, ear bleeding, ear discharge, ear drainage, ear pain, ear ringing, eye pain, eye redness, hearing loss, mouth pain, mouth swelling, nasal discharge, nose bleeding, nose congestion, nose pain, photophobia, tearing, throat pain, throat swelling, voice changes, others Respiratory: denies: cough, hemoptysis, orthopnea, SOB at rest, shortness of breath, SOB with excertion, stridor, wheezing, others Cardiovascular: denies: chest pain, dizzy spells, diaphoresis, Dyspnea on exertion, edema, irregular heart beat, left arm pain, lightheadedness, palpitations, PND, syncope, others Gastrointestinal: reports: abdominal pain, nausea, vomiting; denies: abdomen distended, blood streaked bowels, constipated, diarrhea, dysphagia, difficulty swallowing, hematemesis, melena, poor appetite, poor fluid intake, rectal bleeding, rectal pain, others Genitourinary: denies: burning, dysuria, flank pain, frequency, hematuria, incontinence, penile discharge, penile sore, pain, testicle pain, testicle swelling, urgency, others Neurological: denies: dizziness, fainting, headache, left sided numbness, left sided weakness, numbness, paresthesia, pre-existing deficit, right sided numbness, right sided weakness, seizure, speech problems, tingling, tremors, weakness, others Musculoskeletal: denies: back pain, gout, joint pain, joint swelling, muscle pain, muscle stiffness, neck pain, others Integumetry: denies: bruises, change in color, change in hair/nails, dryness, laceration, lesions, lumps, rash, wounds, others Allergic/Immunocompromised: denies: Difficulty Healing, Frequent Infections, Hives, Itching, others Hematologic/Lymphatic: denies: anemia, blood clots, easy bleeding, easy bruis ing, swollen glands, others Endocrine: denies: excessive hunger, excessive sweating, excessive thirst, exc essive urination, flushing, intolerance to cold, intolerance to heat, unexplained weight gain, unexplained weight loss, others Psychiatric: denies: anxiety, bipolar disorder, depression, hopeless, panic disorder, schizophrenia, sleepless, suicidal, others Physical Exam General Appearance: Mild Distress (Moderate distress due to the patient's concerns. Patient may be on methamphetamine.), Normal HEENT: Normal ENT Inspection, Pharynx Normal, TMs Normal Neck: Full Range of Motion, Non-Tender, Normal, Normal Inspection Respiratory: Chest Non-Tender, Lungs Clear, No Accessory Muscle Use, No Respiratory Distress, Normal Breath Sounds Cardiovascular: No Edema, No JVD, No Murmur, No Gallop, Normal Peripheral Pulses, Regular Rate/Rhythm Breast Exam: Deferred Gastrointestinal: Other (Diffuse nonspecific epigastric tenderness to palpa tion. No pulsatile masses. No signs of trauma.) Genitalia: Deferred Pelvic: Deferred Rectal: Deferred Extremities: No calf tenderness, Normal inspection Neurologic: Alert Cerebellar Function: NOT DONE Reflexes: NOT DONE Skin: Dry, Normal Color, Warm Lymphatic: No Adenopathy Was a procedure done? Was a procedure done?: No Differential Dx Considerations may include: Sepsis, electrolyte abnormality, gastroenteritis, food poisoning X-Ray, Labs, Meds, VS Vital Signs Date Time Temp Pulse Resp B/P (MAP) Pulse Ox O2 Delivery O2 Flow Rate FiO2 12/06/24 20:21 97.8 84 20 155/84 99 97.8 Lab Test 12/06/24 21:21 Range/Units Influenza Type A Antigen Negative Negative Influenza Type B Antigen Negative Negative SARS-CoV-2 Antigen (Rapid) Negative NEGATIVE X-Ray, Labs, Meds, VS Comment All studies performed the ED were evaluated by me personally. Serum studies were unremarkable for any systemic concerns. Patient appears to have a gastroenteritis event. Time of 1ST Reevaluation: 22:19 Reevaluation 1ST: Improved Consultation: PCP Patient Education/Counseling: Diagnosis, Treatment Family Education/Counseling: Diagnosis, Treatment SEPSIS Sepsis Screen Date sepsis recognized/suspect: Dec 06, 2024 Time Sepsis recognized/suspect: 2024 Recent Procedure: No On Antibiotic Therapy: No Respiratory Rate >20: No Heart Rate >90: No Temp<36 C (96.8 F) or >38.3 C: No SBP <90 or MAP <65 mmHG: No New Acute Mental Status Change: No Is the patient on CPAP, BIPAP,: No Vital Signs Date Time Temp Pulse Resp B/P (MAP) Pulse Ox O2 Delivery O2 Flow Rate FiO2 12/06/24 20:21 97.8 84 20 155/84 99 97.8 Departure 1 Departure Time of Disposition: 22:19 Impression: Primary Impression: Gastroenteritis Disposition: HOME / SELF CARE / HOMELESS Condition: Stable Additional Instructions: Advised medication as needed for symptomatic relief. Advised good hydration and healthy nutrition for the next few days. e-Prescriptions Acetaminophen (Acetaminophen) 500 Mg Tab 500 MG PO Q4HP PRN, #20 TAB Prov: CECILIA CARSON PAC 12/06/24 Ondansetron Odt 4MG Tab (ZOFRAN PO) 4 Mg Tb 4 MG PO Q6HP PRN, #15 TAB ODT TAB-DISSOLVE IN MOUTH, THEN SWALLOW Prov: CECILIA CARSON 12/06/24 Discharged With: Self Critical Care Note Critical Care Time?: No Stability Stability form required: No Heart Score Heart Score: Heart Score Response (Comments) Value History N/A 0 EKG N/A 0 Age N/A 0 Risk Factors N/A 0 Troponin N/A 0 Total 0 CECILIA CARSON PAC Dec 06, 2024 22:21
== END 2024-12-07 00:11 | disposition home or self-care (01) ==
LOC: ER 20:01
DX: K52.9 Noninfective gastroenteritis and colitis, unspecified (principal); F17.210 Nicotine dependence, cigarettes, uncomplicated; I10 Essential (primary) hypertension; F41.9 Anxiety disorder, unspecified; Z20.822 Contact with and (suspected) exposure to COVID-19; Z79.899 Other long term (current) drug therapy
CPT/HCPCS: 36415; 87426; 87804

== ENCOUNTER 2024-12-31 18:09 | Emergency (ER) | payer OTHER ==
[~2024-12-31] VITALS: Ht 182.9 cm; Wt 99.0 kg
[~2024-12-31 18:09] MED LIST changes: +ZOFR4T PO
[2024-12-31 18:14] VITALS: BP 146/85; PULSE 104; RESP 18; TEMP 99; O2SAT 99
== END 2024-12-31 19:44 | disposition left against medical advice (07) ==
LOC: ER 18:09
DX: M79.604 Pain in right leg (principal); Z53.21 Procedure and treatment not carried out due to patient leaving prior to being seen by health care provider